=== PATIENT | female | born 1995 | race American Indian/Alaskan Native ===

== ENCOUNTER 2016-06-11 21:29 | Inpatient (IN) | payer BC, MEDICAID ==
[2016-06-11] MEDS ORDERED: LACTATED RINGERS 1,000 ML IV SCH (22:00)
[2016-06-11] MEDS ORDERED: ZOFRAN IV ONE (22:30)
[2016-06-11] MEDS ORDERED: POLYCILLIN/NS 2 GM/100 ML 2 GM/100 ML BAG IV ONE (23:59)
[2016-06-11] MEDS ORDERED: STADOL IV PRN (23:59)
[2016-06-12] MEDS ORDERED: SUBLIMAZE IV PRN (00:28)
[2016-06-12] MEDS ORDERED: BRETHINE SUB-Q PRN (00:28)
[2016-06-12] MEDS ORDERED: MINERAL OIL PO PRN (00:28)
[2016-06-12] MEDS ORDERED: NARCAN 0.4 MG/1 ML IV PRN ×2 (00:28→18:44)
[2016-06-12] MEDS ORDERED: ZOFRAN IV PRN (00:28)
[2016-06-12] MEDS ORDERED: BRETHINE IVP PRN (00:28)
[2016-06-12] MEDS ORDERED: ePHEDrine SULFATE IV PRN ×2 (00:28→04:06)
--- NOTE | 2016-06-12 00:35 | History and Physical Report ---
History of Present Illness Date of examination: 06/12/16 Date of admission: 06/12/16 00:18 Chief complaint: Labor History of present illness: Pt is a 20yo BF EDC 06/12/16; EGA 40 0/7 weeks presents to L&D complaining of RUC's q 3-5 mins. She received care at [facility] [place] since 16 weeks, and course has been unremarkable except anemia. records are available and GBS is Positive. Past History Past Medical History: no pertinent history Past Surgical History: no surgical history Family/Genetic History: cancer Social history: no significant social history, single - Obstetrical History Expected Date of Delivery: 06/12/16 Actual Gestation: 40 Week(s) 0 Day(s) : 1 Medications and Allergies Allergies Allergy/AdvReac Type Severity Reaction Status Date / Time No Known Allergies Allergy Verified 06/11/16 21:58 Home Medications Medication Instructions Recorded Confirmed Last Taken Type Pnv with Ca,No.72/Iron/FA [Pnv 1 tab PO DAILY 06/11/16 06/11/16 1 Day Ago History Plus Multivit Tab] Terconazole [Terconazole] 20 cream VG DAILY 06/11/16 06/11/16 1 Day Ago History 1 appl Active Meds: Active Medications Butorphanol Tartrate (Stadol) 2 mg IV Q2H PRN PRN Reason: Labor Pain Lactated Ringer's (Lactated Ringers) 1,000 mls @ 125 mls/hr IV DIRECT HUONG Last Admin: 06/11/16 22:12 Dose: 125 mls/hr Ampicillin Sodium (Polycillin/Ns 2 Gm/100 Ml) 2 gm in 100 mls @ 100 mls/hr IV ONCE ONE PRN Reason: Protocol Stop: 06/12/16 00:58 Ampicillin Sodium (Polycillin/Ns 1 Gm/50 Ml) 1 gm in 50 mls @ 100 mls/hr IV Q4H HUONG PRN Reason: Protocol Review of Systems All systems: negative - Vital Signs Vital signs: Vital Signs Temp Pulse Resp BP Pulse Ox 97.9 F 104 H 20 137/51 96 06/11/16 21:46 06/11/16 21:46 06/11/16 21:46 06/11/16 21:46 06/11/16 21:46 Temp Pulse Resp BP Pulse Ox 97.9 F 80 20 131/58 95 06/11/16 21:46 06/11/16 23:41 06/11/16 21:46 06/11/16 22:41 06/11/16 23:41 - Physical Exam Breasts: Positive: deferred Cardiovascular: Regular rate Lungs: Positive: Clear to auscultation Abdomen: Positive: normal appearance Genitourinary (Female): Positive: normal external genitalia Vagina: Positive: normal moisture Uterus: Positive: enlarged Extremities: Positive: normal - Obstetrical FHR: category 2 Uterine Contraction Monitor Mode: External Cervical Dilatation: 3 Cervical Effacement Percentage: 80 station: -2 Uterine Contraction Pattern: Irregular Uterine Contraction Intensity: Mild Results Result Diagrams: 06/11/16 22:10 All other labs normal. Ultrasound: report reviewed ([facility] 11/28) Assessment and Plan - Patient Problems (1) Active labor at term Onset Date: 06/12/16 Current Visit: Yes Status: Acute Plan to address problem: A: IUP @ 40 0/7 weeks in early labor Cat 2 Tracing - improved +GBS P: Admit to L&D for expectant vaginal delivery IV Ampicillin Pitocin augmentation of labor
[2016-06-12] MEDS: LACTATED RINGERS 1,000 ML IV SCH ×2 (00:53→15:40)
[2016-06-12] MEDS ORDERED: PITOCin/NS 20 UNIT/1000ML DRIP 20,000 MILLIUNITS/1,000 ML BAG IV SCH ×2 (01:00→19:00)
[2016-06-12] MEDS ORDERED: PITOCin/NS 30 UNIT/500ML 30,000 MILLIUNITS/500 ML BAG IV SCH (01:00)
[2016-06-12 02:57] LABS: Hematocrit 36.7 % (30.3-42.9); Hemoglobin 12.1 gm/dl (10.1-14.3); Mean Corpuscular HGB Conc 33 % (30-34); Mean Corpuscular Hemoglobin 31 pg (28-32); Mean Corpuscular Volume 94 fl (79-97); Platelet Count 248 K/mm3 (140-440); Red Blood Count 3.92 M/mm3 (3.65-5.03); Red Cell Distribution Width 14.1 % (13.2-15.2); White Blood Count 6.8 K/mm3 (4.5-11.0)
--- NOTE | 2016-06-12 04:06 | Anesthesia Consultation ---
Anesthesia Consult and Med Hx Date of service: 06/12/16 - Airway Anesthetic Teeth Evaluation: Good ROM Head & Neck: Adequate Mental/Hyoid Distance: Adequate Intubation Access Assessment: Probably Good - Pre-Operative Health Status ASA Pre-Surgery Classification: ASA2, Emergency Proposed Anesthetic Plan: Epidural, Spinal - Pulmonary Hx Asthma: No Hx Pneumonia: No - Cardiovascular System Hx Hypertension: No - Central Nervous System Hx Seizures: No Hx Psychiatric Problems: No - Endocrine Hx Renal Disease: No Hx End Stage Renal Disease: No Hx Hypothyroidism: No Hx Hyperthyroidism: No - Hematic Hx Anemia: No Hx Sickle Cell Disease: No - Other Systems Hx Alcohol Use: No
[2016-06-12] MEDS: POLYCILLIN/NS 1 GM/50 ML 1 GM/50 ML BAG IV SCH ×3 (04:39→16:33)
[2016-06-12] MEDS: fentaNYL-BUPIV 2 MCG/ML-0.125% 200 MCG/100 ML BAG EPIDURAL SCH ×2 (04:40→12:11)
[2016-06-12] MEDS: PITOCin/NS 30 UNIT/500ML 30,000 MILLIUNITS/500 ML BAG IV SCH ×6 (05:03→11:38)
--- NOTE | 2016-06-12 07:13 | Progress Note ---
Subjective - Subjective Date of service: 06/12/16 Objective - Vital Signs Vital Signs: Vital Signs - 12hr 06/11/16 06/11/16 06/11/16 21:46 21:51 21:52 Temperature 97.9 F Pulse Rate 89 96 H 80 Pulse Rate [ 104 H From Monitor] Respiratory 20 Rate Blood Pressure Blood Pressure 137/51 [Left Arm] O2 Sat by Pulse 99 98 99 Oximetry 06/11/16 06/11/16 06/11/16 21:54 21:55 21:57 Temperature Pulse Rate 133 H 141 H 123 H Pulse Rate [ From Monitor] Respiratory Rate Blood Pressure Blood Pressure [Left Arm] O2 Sat by Pulse 91 97 96 Oximetry 06/11/16 06/11/16 06/11/16 21:59 22:02 22:07 Temperature Pulse Rate 113 H 93 H 89 Pulse Rate [ From Monitor] Respiratory Rate Blood Pressure 137/51 Blood Pressure [Left Arm] O2 Sat by Pulse 95 98 Oximetry 06/11/16 06/11/16 06/11/16 22:09 22:10 22:11 Temperature Pulse Rate 91 H 100 H 98 H Pulse Rate [ From Monitor] Respiratory Rate Blood Pressure 130/78 Blood Pressure [Left Arm] O2 Sat by Pulse 92 93 94 Oximetry 06/11/16 06/11/16 06/11/16 22:14 22:15 22:17 Temperature Pulse Rate 74 84 90 Pulse Rate [ From Monitor] Respiratory Rate Blood Pressure Blood Pressure [Left Arm] O2 Sat by Pulse 93 92 93 Oximetry 06/11/16 06/11/16 06/11/16 22:20 22:21 22:23 Temperature Pulse Rate 83 80 100 H Pulse Rate [ From Monitor] Respiratory Rate Blood Pressure Blood Pressure [Left Arm] O2 Sat by Pulse 93 93 92 Oximetry 06/11/16 06/11/16 06/11/16 22:28 22:29 22:32 Temperature Pulse Rate 91 H 125 H 121 H Pulse Rate [ From Monitor] Respiratory Rate Blood Pressure Blood Pressure [Left Arm] O2 Sat by Pulse 98 92 97 Oximetry 06/11/16 06/11/16 06/11/16 22:37 22:40 22:41 Temperature Pulse Rate 91 H 87 91 H Pulse Rate [ From Monitor] Respiratory Rate Blood Pressure 131/58 Blood Pressure [Left Arm] O2 Sat by Pulse 99 93 96 Oximetry 06/11/16 06/11/1606/11/17 22:46 22:48 22:54 Temperature Pulse Rate 87 88 92 H Pulse Rate [ From Monitor] Respiratory Rate Blood Pressure Blood Pressure [Left Arm] O2 Sat by Pulse 97 93 99 Oximetry 06/11/16 06/11/16 06/11/16 22:59 23:00 23:01 Temperature Pulse Rate 92 H 83 107 H Pulse Rate [ From Monitor] Respiratory Rate Blood Pressure Blood Pressure [Left Arm] O2 Sat by Pulse 98 93 94 Oximetry 06/11/16 06/11/16 06/11/16 23:02 23:05 23:11 Temperature Pulse Rate 100 H 91 H 80 Pulse Rate [ From Monitor] Respiratory Rate Blood Pressure Blood Pressure [Left Arm] O2 Sat by Pulse 93 93 95 Oximetry 06/11/16 06/11/16 06/11/16 23:13 23:14 23:17 Temperature Pulse Rate 91 H 78 93 H Pulse Rate [ From Monitor] Respiratory Rate Blood Pressure Blood Pressure [Left Arm] O2 Sat by Pulse 90 92 98 Oximetry 06/11/16 06/11/16 06/11/16 23:18 23:19 23:20 Temperature Pulse Rate 97 H 75 69 Pulse Rate [ From Monitor] Respiratory Rate Blood Pressure Blood Pressure [Left Arm] O2 Sat by Pulse 97 88 93 Oximetry 06/11/16 06/11/16 06/11/16 23:21 23:24 23:29 Temperature Pulse Rate 71 97 H 85 Pulse Rate [ From Monitor] Respiratory Rate Blood Pressure Blood Pressure [Left Arm] O2 Sat by Pulse 93 97 93 Oximetry 06/11/16 06/11/16 06/11/16 23:30 23:31 23:36 Temperature Pulse Rate 67 72 89 Pulse Rate [ From Monitor] Respiratory Rate Blood Pressure Blood Pressure [Left Arm] O2 Sat by Pulse 92 89 97 Oximetry 06/11/16 06/11/16 06/11/16 23:37 23:40 23:41 Temperature Pulse Rate 90 100 H 80 Pulse Rate [ From Monitor] Respiratory Rate Blood Pressure Blood Pressure [Left Arm] O2 Sat by Pulse 93 98 95 Oximetry 06/12/16 06/12/16 06/12/16 00:34 00:38 00:39 Temperature Pulse Rate 86 85 79 Pulse Rate [ From Monitor] Respiratory Rate Blood Pressure 130/63 Blood Pressure [Left Arm] O2 Sat by Pulse 96 94 97 Oximetry 06/12/16 06/12/16 06/12/16 00:44 00:49 00:52 Temperature Pulse Rate 87 84 74 Pulse Rate [ From Monitor] Respiratory Rate Blood Pressure Blood Pressure [Left Arm] O2 Sat by Pulse 98 97 93 Oximetry 06/12/16 06/12/16 06/12/16 00:54 00:59 01:04 Temperature Pulse Rate 72 88 85 Pulse Rate [ From Monitor] Respiratory Rate Blood Pressure Blood Pressure [Left Arm] O2 Sat by Pulse 96 94 96 Oximetry 06/12/16 06/12/16 06/12/16 01:07 01:08 01:09 Temperature Pulse Rate 82 88 Pulse Rate [ From Monitor] Respiratory 18 Rate Blood Pressure Blood Pressure [Left Arm] O2 Sat by Pulse 89 96 Oximetry 06/12/16 06/12/16 06/12/16 01:14 01:16 01:19 Temperature Pulse Rate 76 77 76 Pulse Rate [ From Monitor] Respiratory Rate Blood Pressure Blood Pressure [Left Arm] O2 Sat by Pulse 92 93 92 Oximetry 06/12/16 06/12/16 06/12/16 01:21 01:24 01:29 Temperature Pulse Rate 75 74 74 Pulse Rate [ From Monitor] Respiratory Rate Blood Pressure Blood Pressure [Left Arm] O2 Sat by Pulse 94 94 94 Oximetry 06/12/16 06/12/16 06/12/16 01:34 01:35 01:39 Temperature Pulse Rate 97 H 72 98 H Pulse Rate [ From Monitor] Respiratory Rate Blood Pressure Blood Pressure [Left Arm] O2 Sat by Pulse 96 94 92 Oximetry 06/12/16 06/12/16 06/12/16 01:44 01:47 01:49 Temperature Pulse Rate 79 73 73 Pulse Rate [ From Monitor] Respiratory Rate Blood Pressure Blood Pressure [Left Arm] O2 Sat by Pulse 93 94 93 Oximetry 06/12/16 06/12/16 06/12/16 01:52 01:54 01:58 Temperature Pulse Rate 75 73 80 Pulse Rate [ From Monitor] Respiratory Rate Blood Pressure Blood Pressure [Left Arm] O2 Sat by Pulse 93 94 94 Oximetry 06/12/16 06/12/16 06/12/16 01:59 02:03 02:04 Temperature Pulse Rate 73 78 71 Pulse Rate [ From Monitor] Respiratory Rate Blood Pressure Blood Pressure [Left Arm] O2 Sat by Pulse 94 93 94 Oximetry 06/12/16 06/12/16 06/12/16 02:09 02:10 02:14 Temperature Pulse Rate 93 H 79 102 H Pulse Rate [ From Monitor] Respiratory Rate Blood Pressure Blood Pressure [Left Arm] O2 Sat by Pulse 97 92 95 Oximetry 06/12/16 06/12/16 06/12/16 02:16 02:19 02:22 Temperature Pulse Rate 78 107 H 78 Pulse Rate [ From Monitor] Respiratory Rate Blood Pressure Blood Pressure [Left Arm] O2 Sat by Pulse 93 93 94 Oximetry 06/12/16 06/12/16 06/12/16 02:24 02:29 02:30 Temperature 98.3 F Pulse Rate 103 H 96 H Pulse Rate [ From Monitor] Respiratory 20 Rate Blood Pressure Blood Pressure [Left Arm] O2 Sat by Pulse 97 95 Oximetry 06/12/16 06/12/16 06/12/16 02:32 02:34 02:38 Temperature Pulse Rate 104 H 86 89 Pulse Rate [ From Monitor] Respiratory Rate Blood Pressure Blood Pressure [Left Arm] O2 Sat by Pulse 89 96 94 Oximetry 06/12/16 06/12/16 06/12/16 02:39 02:44 02:45 Temperature Pulse Rate 91 H 69 82 Pulse Rate [ From Monitor] Respiratory Rate Blood Pressure Blood Pressure [Left Arm] O2 Sat by Pulse 96 96 93 Oximetry 06/12/16 06/12/16 06/12/16 02:49 02:54 02:59 Temperature Pulse Rate 69 76 82 Pulse Rate [ From Monitor] Respiratory Rate Blood Pressure Blood Pressure [Left Arm] O2 Sat by Pulse 94 89 93 Oximetry 06/12/16 06/12/16 06/12/16 03:04 03:05 03:09 Temperature Pulse Rate 67 73 71 Pulse Rate [ From Monitor] Respiratory Rate Blood Pressure Blood Pressure [Left Arm] O2 Sat by Pulse 94 94 94 Oximetry 06/12/16 06/12/16 06/12/16 03:10 03:14 03:15 Temperature Pulse Rate 77 81 92 H Pulse Rate [ From Monitor] Respiratory Rate Blood Pressure Blood Pressure [Left Arm] O2 Sat by Pulse 94 96 94 Oximetry 06/12/16 06/12/16 06/12/16 03:19 03:21 03:24 Temperature Pulse Rate 96 H 68 99 H Pulse Rate [ From Monitor] Respiratory Rate Blood Pressure Blood Pressure [Left Arm] O2 Sat by Pulse 97 94 96 Oximetry 06/12/16 06/12/16 06/12/16 03:27 03:29 03:32 Temperature Pulse Rate 71 67 86 Pulse Rate [ From Monitor] Respiratory Rate Blood Pressure Blood Pressure [Left Arm] O2 Sat by Pulse 94 94 94 Oximetry 06/12/16 06/12/16 06/12/16 03:34 03:37 03:39 Temperature Pulse Rate 91 H 92 H 96 H Pulse Rate [ From Monitor] Respiratory Rate Blood Pressure Blood Pressure [Left Arm] O2 Sat by Pulse 97 93 94 Oximetry 06/12/16 06/12/16 06/12/16 03:44 03:46 03:48 Temperature Pulse Rate 105 H 96 H 89 Pulse Rate [ From Monitor] Respiratory Rate Blood Pressure 128/65 125/63 131/60 Blood Pressure [Left Arm] O2 Sat by Pulse 93 Oximetry 06/12/16 06/12/16 06/12/16 03:49 03:50 03:52 Temperature Pulse Rate 99 H 91 H 95 H Pulse Rate [ From Monitor] Respiratory Rate Blood Pressure 134/64 129/60 Blood Pressure [Left Arm] O2 Sat by Pulse 98 94 Oximetry 06/12/16 06/12/16 06/12/16 03:54 03:56 03:58 Temperature Pulse Rate 78 85 83 Pulse Rate [ From Monitor] Respiratory Rate Blood Pressure 127/57 122/58 119/56 Blood Pressure [Left Arm] O2 Sat by Pulse 96 Oximetry 06/12/16 06/12/16 06/12/16 03:59 04:01 04:02 Temperature Pulse Rate 84 80 68 Pulse Rate [ From Monitor] Respiratory Rate Blood Pressure 136/69 133/62 Blood Pressure [Left Arm] O2 Sat by Pulse 98 Oximetry 06/12/16 06/12/16 06/12/16 04:04 04:06 04:08 Temperature Pulse Rate 70 72 74 Pulse Rate [ From Monitor] Respiratory Rate Blood Pressure 131/63 128/56 130/59 Blood Pressure [Left Arm] O2 Sat by Pulse 96 Oximetry 06/12/16 06/12/16 06/12/16 04:09 04:10 04:12 Temperature Pulse Rate 71 60 72 Pulse Rate [ From Monitor] Respiratory Rate Blood Pressure 124/60 132/63 Blood Pressure [Left Arm] O2 Sat by Pulse 94 Oximetry 06/12/16 06/12/16 06/12/16 04:14 04:16 04:18 Temperature Pulse Rate 65 67 62 Pulse Rate [ From Monitor] Respiratory Rate Blood Pressure 122/70 122/58 125/60 Blood Pressure [Left Arm] O2 Sat by Pulse 94 Oximetry 06/12/16 06/12/16 06/12/16 04:19 04:20 04:22 Temperature Pulse Rate 63 68 67 Pulse Rate [ From Monitor] Respiratory Rate Blood Pressure 118/59 134/59 Blood Pressure [Left Arm] O2 Sat by Pulse 97 Oximetry 06/12/16 06/12/16 06/12/16 04:24 04:26 04:28 Temperature Pulse Rate 70 71 62 Pulse Rate [ From Monitor] Respiratory Rate Blood Pressure 129/60 132/60 135/61 Blood Pressure [Left Arm] O2 Sat by Pulse 96 Oximetry 06/12/16 06/12/16 06/12/16 04:29 04:30 04:32 Temperature Pulse Rate 67 68 65 Pulse Rate [ From Monitor] Respiratory Rate Blood Pressure 137/60 137/61 Blood Pressure [Left Arm] O2 Sat by Pulse 97 Oximetry 06/12/16 06/12/16 06/12/16 04:34 04:35 04:36 Temperature 96.1 F L Pulse Rate 67 66 72 Pulse Rate [ From Monitor] Respiratory 18 Rate Blood Pressure 138/61 126/60 Blood Pressure [Left Arm] O2 Sat by Pulse 95 94 Oximetry 06/12/16 06/12/16 06/12/16 04:38 04:39 04:40 Temperature Pulse Rate 72 69 66 Pulse Rate [ From Monitor] Respiratory Rate Blood Pressure 134/60 138/64 Blood Pressure [Left Arm] O2 Sat by Pulse 96 Oximetry 06/12/16 06/12/16 06/12/16 04:42 04:44 04:46 Temperature Pulse Rate 68 68 70 Pulse Rate [ From Monitor] Respiratory Rate Blood Pressure 136/63 137/65 141/67 Blood Pressure [Left Arm] O2 Sat by Pulse 97 Oximetry 06/12/16 06/12/16 06/12/16 04:48 04:49 04:50 Temperature Pulse Rate 69 67 77 Pulse Rate [ From Monitor] Respiratory Rate Blood Pressure 134/62 131/60 Blood Pressure [Left Arm] O2 Sat by Pulse 98 Oximetry 06/12/16 06/12/16 06/12/16 04:52 04:54 04:56 Temperature Pulse Rate 69 71 74 Pulse Rate [ From Monitor] Respiratory Rate Blood Pressure 136/63 135/61 137/63 Blood Pressure [Left Arm] O2 Sat by Pulse 96 Oximetry 06/12/16 06/12/16 06/12/16 04:58 04:59 05:00 Temperature Pulse Rate 71 72 78 Pulse Rate [ From Monitor] Respiratory Rate Blood Pressure 137/62 134/62 Blood Pressure [Left Arm] O2 Sat by Pulse 97 Oximetry 06/12/16 06/12/16 06/12/16 05:02 05:04 05:06 Temperature Pulse Rate 69 70 71 Pulse Rate [ From Monitor] Respiratory Rate Blood Pressure 142/64 137/62 144/66 Blood Pressure [Left Arm] O2 Sat by Pulse 97 Oximetry 06/12/16 06/12/16 06/12/16 05:08 05:09 05:10 Temperature Pulse Rate 74 71 80 Pulse Rate [ From Monitor] Respiratory Rate Blood Pressure 139/63 139/62 Blood Pressure [Left Arm] O2 Sat by Pulse 97 Oximetry 06/12/16 06/12/16 06/12/16 05:12 05:14 05:16 Temperature Pulse Rate 71 78 70 Pulse Rate [ From Monitor] Respiratory Rate Blood Pressure 135/61 135/61 141/65 Blood Pressure [Left Arm] O2 Sat by Pulse 98 Oximetry 06/12/16 06/12/16 06/12/16 05:18 05:19 05:20 Temperature Pulse Rate 70 80 71 Pulse Rate [ From Monitor] Respiratory Rate Blood Pressure 140/63 143/64 Blood Pressure [Left Arm] O2 Sat by Pulse 99 Oximetry 06/12/16 06/12/16 06/12/16 05:22 05:24 05:25 Temperature Pulse Rate 76 78 71 Pulse Rate [ From Monitor] Respiratory Rate Blood Pressure 129/59 140/63 Blood Pressure [Left Arm] O2 Sat by Pulse 96 Oximetry 06/12/16 06/12/16 06/12/16 05:26 05:28 05:29 Temperature Pulse Rate 75 73 75 Pulse Rate [ From Monitor] Respiratory Rate Blood Pressure 132/60 131/60 Blood Pressure [Left Arm] O2 Sat by Pulse 95 Oximetry 06/12/16 06/12/16 06/12/16 05:31 05:32 05:34 Temperature Pulse Rate 67 67 78 Pulse Rate [ From Monitor] Respiratory Rate Blood Pressure 134/63 135/63 133/62 Blood Pressure [Left Arm] O2 Sat by Pulse 96 Oximetry 06/12/16 06/12/16 06/12/16 05:36 05:38 05:39 Temperature Pulse Rate 81 66 68 Pulse Rate [ From Monitor] Respiratory Rate Blood Pressure 141/67 144/66 Blood Pressure [Left Arm] O2 Sat by Pulse 96 Oximetry 06/12/16 06/12/16 06/12/16 05:40 05:42 05:44 Temperature Pulse Rate 64 71 64 Pulse Rate [ From Monitor] Respiratory Rate Blood Pressure 145/65 142/64 144/67 Blood Pressure [Left Arm] O2 Sat by Pulse 97 Oximetry 06/12/16 06/12/16 06/12/16 05:46 05:49 05:50 Temperature Pulse Rate 63 66 66 Pulse Rate [ From Monitor] Respiratory Rate Blood Pressure 140/59 143/84 142/65 Blood Pressure [Left Arm] O2 Sat by Pulse 100 Oximetry 06/12/16 06/12/16 06/12/16 05:52 05:54 05:56 Temperature Pulse Rate 75 75 71 Pulse Rate [ From Monitor] Respiratory Rate Blood Pressure 142/65 160/72 141/65 Blood Pressure [Left Arm] O2 Sat by Pulse 96 Oximetry 06/12/16 06/12/16 06/12/16 05:58 05:59 06:01 Temperature Pulse Rate 74 84 76 Pulse Rate [ From Monitor] Respiratory Rate Blood Pressure 141/63 137/81 Blood Pressure [Left Arm] O2 Sat by Pulse 94 Oximetry 06/12/16 06/12/16 06/12/16 06:04 06:09 06:10 Temperature Pulse Rate 86 94 H 72 Pulse Rate [ From Monitor] Respiratory Rate Blood Pressure 136/77 148/65 146/65 Blood Pressure [Left Arm] O2 Sat by Pulse 97 97 Oximetry 06/12/16 06/12/16 06/12/16 06:12 06:13 06:14 Temperature Pulse Rate 67 84 72 Pulse Rate [ From Monitor] Respiratory Rate Blood Pressure 140/63 Blood Pressure [Left Arm] O2 Sat by Pulse 93 94 Oximetry 06/12/16 06/12/16 06/12/16 06:15 06:19 06:24 Temperature Pulse Rate 69 79 68 Pulse Rate [ From Monitor] Respiratory Rate Blood Pressure 150/66 Blood Pressure [Left Arm] O2 Sat by Pulse 95 98 Oximetry 06/12/16 06/12/16 06/12/16 06:29 06:30 06:32 Temperature 97 F L Pulse Rate 60 64 Pulse Rate [ From Monitor] Respiratory 20 Rate Blood Pressure 157/71 Blood Pressure [Left Arm] O2 Sat by Pulse 96 Oximetry 06/12/16 06/12/16 06/12/16 06:34 06:38 06:39 Temperature Pulse Rate 74 69 77 Pulse Rate [ From Monitor] Respiratory Rate Blood Pressure Blood Pressure [Left Arm] O2 Sat by Pulse 97 94 98 Oximetry 06/12/16 06/12/16 06/12/16 06:44 06:46 06:47 Temperature Pulse Rate 79 64 69 Pulse Rate [ From Monitor] Respiratory Rate Blood Pressure 140/63 Blood Pressure [Left Arm] O2 Sat by Pulse 97 92 Oximetry 06/12/16 06/12/16 06/12/16 06:49 06:52 06:54 Temperature Pulse Rate 62 75 64 Pulse Rate [ From Monitor] Respiratory Rate Blood Pressure Blood Pressure [Left Arm] O2 Sat by Pulse 96 94 97 Oximetry 06/12/16 06/12/16 06/12/16 06:59 07:01 07:04 Temperature Pulse Rate 59 L 65 64 Pulse Rate [ From Monitor] Respiratory Rate Blood Pressure 141/65 Blood Pressure [Left Arm] O2 Sat by Pulse 96 95 Oximetry 06/12/16 07:09 Temperature Pulse Rate 68 Pulse Rate [ From Monitor] Respiratory Rate Blood Pressure Blood Pressure [Left Arm] O2 Sat by Pulse 97 Oximetry - Exam FHR: category 1 - Labs Labs: Laboratory Results - last 24 hr 06/11/16 06/11/16 22:10 22:10 WBC 6.8 RBC 3.92 Hgb 12.1 Hct 36.7 MCV 94 MCH 31 MCHC 33 RDW 14.1 Plt Count 248 Blood Type O POSITIVE Antibody Screen Negative
[2016-06-12] MEDS ORDERED: XYLOCAINE MPF 2% ONE ×6 (07:31→18:21)
--- NOTE | 2016-06-12 07:57 | Ultrasound Report ---
OB LIMITED Technique: Transabdominal ultrasound with Doppler interrogation. Gestation: Single Position: Cephalic Amniotic Fluid: Normal ANNEL = 9.5 cm Placenta: Fundal Placental Grade: 3 Heart Rate: 137 BPM
--- NOTE | 2016-06-12 07:57 | Ultrasound Report ---
BIOPHYSICAL PROFILE: History: well-being. Technique: Transabdominal ultrasound with Doppler interrogation. 2 - breathing movements 2 - movements 2 - posture and tone 2 - Qualitative amniotic fluid volume 8 - TOTAL SCORE OF POSSIBLE 8 Heart Rate (bpm) 137
--- NOTE | 2016-06-12 09:29 | Progress Note ---
Assessment and Plan A: IUP 40 weeks in active labor resting well with epidural anesthesia category 1 heart tracing GBS positive P: Routine care, turning q 1 hr Continuous monitoring AROM @0915 moderate amount of clear fluid GBS prophylaxis Subjective - Subjective Date of service: 06/12/16 Principal diagnosis: IUP 40 weeks, active labor Objective - Vital Signs Vital Signs: Vital Signs - 12hr 06/11/16 06/11/16 06/11/16 21:46 21:51 21:52 Temperature 97.9 F Pulse Rate 89 96 H 80 Pulse Rate [ 104 H From Monitor] Respiratory 20 Rate Blood Pressure Blood Pressure 137/51 [Left Arm] O2 Sat by Pulse 99 98 99 Oximetry 06/11/16 06/11/16 06/11/16 21:54 21:55 21:57 Temperature Pulse Rate 133 H 141 H 123 H Pulse Rate [ From Monitor] Respiratory Rate Blood Pressure Blood Pressure [Left Arm] O2 Sat by Pulse 91 97 96 Oximetry 06/11/16 06/11/16 06/11/16 21:59 22:02 22:07 Temperature Pulse Rate 113 H 93 H 89 Pulse Rate [ From Monitor] Respiratory Rate Blood Pressure 137/51 Blood Pressure [Left Arm] O2 Sat by Pulse 95 98 Oximetry 06/11/16 06/11/16 06/11/16 22:09 22:10 22:11 Temperature Pulse Rate 91 H 100 H 98 H Pulse Rate [ From Monitor] Respiratory Rate Blood Pressure 130/78 Blood Pressure [Left Arm] O2 Sat by Pulse 92 93 94 Oximetry 06/11/16 06/11/16 06/11/16 22:14 22:15 22:17 Temperature Pulse Rate 74 84 90 Pulse Rate [ From Monitor] Respiratory Rate Blood Pressure Blood Pressure [Left Arm] O2 Sat by Pulse 93 92 93 Oximetry 06/11/16 06/11/16 06/11/16 22:20 22:21 22:23 Temperature Pulse Rate 83 80 100 H Pulse Rate [ From Monitor] Respiratory Rate Blood Pressure Blood Pressure [Left Arm] O2 Sat by Pulse 93 93 92 Oximetry 06/11/16 06/11/16 06/11/16 22:28 22:29 22:32 Temperature Pulse Rate 91 H 125 H 121 H Pulse Rate [ From Monitor] Respiratory Rate Blood Pressure Blood Pressure [Left Arm] O2 Sat by Pulse 98 92 97 Oximetry 06/11/16 06/11/16 06/11/16 22:37 22:40 22:41 Temperature Pulse Rate 91 H 87 91 H Pulse Rate [ From Monitor] Respiratory Rate Blood Pressure 131/58 Blood Pressure [Left Arm] O2 Sat by Pulse 99 93 96 Oximetry 06/11/16 06/11/16 06/11/16 22:46 22:48 22:54 Temperature Pulse Rate 87 88 92 H Pulse Rate [ From Monitor] Respiratory Rate Blood Pressure Blood Pressure [Left Arm] O2 Sat by Pulse 97 93 99 Oximetry 06/11/16 06/11/16 06/11/16 22:59 23:00 23:01 Temperature Pulse Rate 92 H 83 107 H Pulse Rate [ From Monitor] Respiratory Rate Blood Pressure Blood Pressure [Left Arm] O2 Sat by Pulse 98 93 94 Oximetry 06/11/16 06/11/16 06/11/16 23:02 23:05 23:11 Temperature Pulse Rate 100 H 91 H 80 Pulse Rate [ From Monitor] Respiratory Rate Blood Pressure Blood Pressure [Left Arm] O2 Sat by Pulse 93 93 95 Oximetry 06/11/16 06/11/16 06/11/16 23:13 23:14 23:17 Temperature Pulse Rate 91 H 78 93 H Pulse Rate [ From Monitor] Respiratory Rate Blood Pressure Blood Pressure [Left Arm] O2 Sat by Pulse 90 92 98 Oximetry 06/11/16 06/11/16 06/11/16 23:18 23:19 23:20 Temperature Pulse Rate 97 H 75 69 Pulse Rate [ From Monitor] Respiratory Rate Blood Pressure Blood Pressure [Left Arm] O2 Sat by Pulse 97 88 93 Oximetry 06/11/16 06/11/16 06/11/16 23:21 23:24 23:29 Temperature Pulse Rate 71 97 H 85 Pulse Rate [ From Monitor] Respiratory Rate Blood Pressure Blood Pressure [Left Arm] O2 Sat by Pulse 93 97 93 Oximetry 06/11/16 06/11/16 06/11/16 23:30 23:31 23:36 Temperature Pulse Rate 67 72 89 Pulse Rate [ From Monitor] Respiratory Rate Blood Pressure Blood Pressure [Left Arm] O2 Sat by Pulse 92 89 97 Oximetry 06/11/16 06/11/16 06/11/16 23:37 23:40 23:41 Temperature Pulse Rate 90 100 H 80 Pulse Rate [ From Monitor] Respiratory Rate Blood Pressure Blood Pressure [Left Arm] O2 Sat by Pulse 93 98 95 Oximetry 06/12/16 06/12/16 06/12/16 00:34 00:38 00:39 Temperature Pulse Rate 86 85 79 Pulse Rate [ From Monitor] Respiratory Rate Blood Pressure 130/63 Blood Pressure [Left Arm] O2 Sat by Pulse 96 94 97 Oximetry 06/12/16 06/12/16 06/12/16 00:44 00:49 00:52 Temperature Pulse Rate 87 84 74 Pulse Rate [ From Monitor] Respiratory Rate Blood Pressure Blood Pressure [Left Arm] O2 Sat by Pulse 98 97 93 Oximetry 06/12/16 06/12/16 06/12/16 00:54 00:59 01:04 Temperature Pulse Rate 72 88 85 Pulse Rate [ From Monitor] Respiratory Rate Blood Pressure Blood Pressure [Left Arm] O2 Sat by Pulse 96 94 96 Oximetry 06/12/16 06/12/16 06/12/16 01:07 01:08 01:09 Temperature Pulse Rate 82 88 Pulse Rate [ From Monitor] Respiratory 18 Rate Blood Pressure Blood Pressure [Left Arm] O2 Sat by Pulse 89 96 Oximetry 06/12/16 06/12/16 06/12/16 01:14 01:16 01:19 Temperature Pulse Rate 76 77 76 Pulse Rate [ From Monitor] Respiratory Rate Blood Pressure Blood Pressure [Left Arm] O2 Sat by Pulse 92 93 92 Oximetry 06/12/16 06/12/16 06/12/16 01:21 01:24 01:29 Temperature Pulse Rate 75 74 74 Pulse Rate [ From Monitor] Respiratory Rate Blood Pressure Blood Pressure [Left Arm] O2 Sat by Pulse 94 94 94 Oximetry 06/12/16 06/12/16 06/12/16 01:34 01:35 01:39 Temperature Pulse Rate 97 H 72 98 H Pulse Rate [ From Monitor] Respiratory Rate Blood Pressure Blood Pressure [Left Arm] O2 Sat by Pulse 96 94 92 Oximetry 06/12/16 06/12/16 06/12/16 01:44 01:47 01:49 Temperature Pulse Rate 79 73 73 Pulse Rate [ From Monitor] Respiratory Rate Blood Pressure Blood Pressure [Left Arm] O2 Sat by Pulse 93 94 93 Oximetry 06/12/16 06/12/16 06/12/16 01:52 01:54 01:58 Temperature Pulse Rate 75 73 80 Pulse Rate [ From Monitor] Respiratory Rate Blood Pressure Blood Pressure [Left Arm] O2 Sat by Pulse 93 94 94 Oximetry 06/12/16 06/12/16 06/12/16 01:59 02:03 02:04 Temperature Pulse Rate 73 78 71 Pulse Rate [ From Monitor] Respiratory Rate Blood Pressure Blood Pressure [Left Arm] O2 Sat by Pulse 94 93 94 Oximetry 06/12/16 06/12/16 06/12/16 02:09 02:10 02:14 Temperature Pulse Rate 93 H 79 102 H Pulse Rate [ From Monitor] Respiratory Rate Blood Pressure Blood Pressure [Left Arm] O2 Sat by Pulse 97 92 95 Oximetry 06/12/16 06/12/16 06/12/16 02:16 02:19 02:22 Temperature Pulse Rate 78 107 H 78 Pulse Rate [ From Monitor] Respiratory Rate Blood Pressure Blood Pressure [Left Arm] O2 Sat by Pulse 93 93 94 Oximetry 06/12/16 06/12/16 06/12/16 02:24 02:29 02:30 Temperature 98.3 F Pulse Rate 103 H 96 H Pulse Rate [ From Monitor] Respiratory 20 Rate Blood Pressure Blood Pressure [Left Arm] O2 Sat by Pulse 97 95 Oximetry 06/12/16 06/12/16 06/12/16 02:32 02:34 02:38 Temperature Pulse Rate 104 H 86 89 Pulse Rate [ From Monitor] Respiratory Rate Blood Pressure Blood Pressure [Left Arm] O2 Sat by Pulse 89 96 94 Oximetry 06/12/16 06/12/16 06/12/16 02:39 02:44 02:45 Temperature Pulse Rate 91 H 69 82 Pulse Rate [ From Monitor] Respiratory Rate Blood Pressure Blood Pressure [Left Arm] O2 Sat by Pulse 96 96 93 Oximetry 06/12/16 06/12/16 06/12/16 02:49 02:54 02:59 Temperature Pulse Rate 69 76 82 Pulse Rate [ From Monitor] Respiratory Rate Blood Pressure Blood Pressure [Left Arm] O2 Sat by Pulse 94 89 93 Oximetry 06/12/16 06/12/16 06/12/16 03:04 03:05 03:09 Temperature Pulse Rate 67 73 71 Pulse Rate [ From Monitor] Respiratory Rate Blood Pressure Blood Pressure [Left Arm] O2 Sat by Pulse 94 94 94 Oximetry 06/12/16 06/12/16 06/12/16 03:10 03:14 03:15 Temperature Pulse Rate 77 81 92 H Pulse Rate [ From Monitor] Respiratory Rate Blood Pressure Blood Pressure [Left Arm] O2 Sat by Pulse 94 96 94 Oximetry 06/12/16 06/12/16 06/12/16 03:19 03:21 03:24 Temperature Pulse Rate 96 H 68 99 H Pulse Rate [ From Monitor] Respiratory Rate Blood Pressure Blood Pressure [Left Arm] O2 Sat by Pulse 97 94 96 Oximetry 06/12/16 06/12/16 06/12/16 03:27 03:29 03:32 Temperature Pulse Rate 71 67 86 Pulse Rate [ From Monitor] Respiratory Rate Blood Pressure Blood Pressure [Left Arm] O2 Sat by Pulse 94 94 94 Oximetry 06/12/16 06/12/16 06/12/16 03:34 03:37 03:39 Temperature Pulse Rate 91 H 92 H 96 H Pulse Rate [ From Monitor] Respiratory Rate Blood Pressure Blood Pressure [Left Arm] O2 Sat by Pulse 97 93 94 Oximetry 06/12/16 06/12/16 06/12/16 03:44 03:46 03:48 Temperature Pulse Rate 105 H 96 H 89 Pulse Rate [ From Monitor] Respiratory Rate Blood Pressure 128/65 125/63 131/60 Blood Pressure [Left Arm] O2 Sat by Pulse 93 Oximetry 06/12/16 06/12/16 06/12/16 03:49 03:50 03:52 Temperature Pulse Rate 99 H 91 H 95 H Pulse Rate [ From Monitor] Respiratory Rate Blood Pressure 134/64 129/60 Blood Pressure [Left Arm] O2 Sat by Pulse 98 94 Oximetry 06/12/16 06/12/16 06/12/16 03:54 03:56 03:58 Temperature Pulse Rate 78 85 83 Pulse Rate [ From Monitor] Respiratory Rate Blood Pressure 127/57 122/58 119/56 Blood Pressure [Left Arm] O2 Sat by Pulse 96 Oximetry 06/12/16 06/12/16 06/12/16 03:59 04:01 04:02 Temperature Pulse Rate 84 80 68 Pulse Rate [ From Monitor] Respiratory Rate Blood Pressure 136/69 133/62 Blood Pressure [Left Arm] O2 Sat by Pulse 98 Oximetry 06/12/16 06/12/16 06/12/16 04:04 04:06 04:08 Temperature Pulse Rate 70 72 74 Pulse Rate [ From Monitor] Respiratory Rate Blood Pressure 131/63 128/56 130/59 Blood Pressure [Left Arm] O2 Sat by Pulse 96 Oximetry 06/12/16 06/12/16 06/12/16 04:09 04:10 04:12 Temperature Pulse Rate 71 60 72 Pulse Rate [ From Monitor] Respiratory Rate Blood Pressure 124/60 132/63 Blood Pressure [Left Arm] O2 Sat by Pulse 94 Oximetry 06/12/16 06/12/16 06/12/16 04:14 04:16 04:18 Temperature Pulse Rate 65 67 62 Pulse Rate [ From Monitor] Respiratory Rate Blood Pressure 122/70 122/58 125/60 Blood Pressure [Left Arm] O2 Sat by Pulse 94 Oximetry 06/12/16 06/12/16 06/12/16 04:19 04:20 04:22 Temperature Pulse Rate 63 68 67 Pulse Rate [ From Monitor] Respiratory Rate Blood Pressure 118/59 134/59 Blood Pressure [Left Arm] O2 Sat by Pulse 97 Oximetry 06/12/16 06/12/16 06/12/16 04:24 04:26 04:28 Temperature Pulse Rate 70 71 62 Pulse Rate [ From Monitor] Respiratory Rate Blood Pressure 129/60 132/60 135/61 Blood Pressure [Left Arm] O2 Sat by Pulse 96 Oximetry 06/12/16 06/12/16 06/12/16 04:29 04:30 04:32 Temperature Pulse Rate 67 68 65 Pulse Rate [ From Monitor] Respiratory Rate Blood Pressure 137/60 137/61 Blood Pressure [Left Arm] O2 Sat by Pulse 97 Oximetry 06/12/16 06/12/16 06/12/16 04:34 04:35 04:36 Temperature 96.1 F L Pulse Rate 67 66 72 Pulse Rate [ From Monitor] Respiratory 18 Rate Blood Pressure 138/61 126/60 Blood Pressure [Left Arm] O2 Sat by Pulse 95 94 Oximetry 06/12/16 06/12/16 06/12/16 04:38 04:39 04:40 Temperature Pulse Rate 72 69 66 Pulse Rate [ From Monitor] Respiratory Rate Blood Pressure 134/60 138/64 Blood Pressure [Left Arm] O2 Sat by Pulse 96 Oximetry 06/12/16 06/12/16 06/12/16 04:42 04:44 04:46 Temperature Pulse Rate 68 68 70 Pulse Rate [ From Monitor] Respiratory Rate Blood Pressure 136/63 137/65 141/67 Blood Pressure [Left Arm] O2 Sat by Pulse 97 Oximetry 06/12/16 06/12/16 06/12/16 04:48 04:49 04:50 Temperature Pulse Rate 69 67 77 Pulse Rate [ From Monitor] Respiratory Rate Blood Pressure 134/62 131/60 Blood Pressure [Left Arm] O2 Sat by Pulse 98 Oximetry 06/12/16 06/12/16 06/12/16 04:52 04:54 04:56 Temperature Pulse Rate 69 71 74 Pulse Rate [ From Monitor] Respiratory Rate Blood Pressure 136/63 135/61 137/63 Blood Pressure [Left Arm] O2 Sat by Pulse 96 Oximetry 06/12/16 06/12/16 06/12/16 04:58 04:59 05:00 Temperature Pulse Rate 71 72 78 Pulse Rate [ From Monitor] Respiratory Rate Blood Pressure 137/62 134/62 Blood Pressure [Left Arm] O2 Sat by Pulse 97 Oximetry 06/12/16 06/12/16 06/12/16 05:02 05:04 05:06 Temperature Pulse Rate 69 70 71 Pulse Rate [ From Monitor] Respiratory Rate Blood Pressure 142/64 137/62 144/66 Blood Pressure [Left Arm] O2 Sat by Pulse 97 Oximetry 06/12/16 06/12/16 06/12/16 05:08 05:09 05:10 Temperature Pulse Rate 74 71 80 Pulse Rate [ From Monitor] Respiratory Rate Blood Pressure 139/63 139/62 Blood Pressure [Left Arm] O2 Sat by Pulse 97 Oximetry 06/12/16 06/12/16 06/12/16 05:12 05:14 05:16 Temperature Pulse Rate 71 78 70 Pulse Rate [ From Monitor] Respiratory Rate Blood Pressure 135/61 135/61 141/65 Blood Pressure [Left Arm] O2 Sat by Pulse 98 Oximetry 06/12/16 06/12/16 06/12/16 05:18 05:19 05:20 Temperature Pulse Rate 70 80 71 Pulse Rate [ From Monitor] Respiratory Rate Blood Pressure 140/63 143/64 Blood Pressure [Left Arm] O2 Sat by Pulse 99 Oximetry 06/12/16 06/12/16 06/12/16 05:22 05:24 05:25 Temperature Pulse Rate 76 78 71 Pulse Rate [ From Monitor] Respiratory Rate Blood Pressure 129/59 140/63 Blood Pressure [Left Arm] O2 Sat by Pulse 96 Oximetry 06/12/16 06/12/16 06/12/16 05:26 05:28 05:29 Temperature Pulse Rate 75 73 75 Pulse Rate [ From Monitor] Respiratory Rate Blood Pressure 132/60 131/60 Blood Pressure [Left Arm] O2 Sat by Pulse 95 Oximetry 06/12/16 06/12/16 06/12/16 05:31 05:32 05:34 Temperature Pulse Rate 67 67 78 Pulse Rate [ From Monitor] Respiratory Rate Blood Pressure 134/63 135/63 133/62 Blood Pressure [Left Arm] O2 Sat by Pulse 96 Oximetry 06/12/16 06/12/16 06/12/16 05:36 05:38 05:39 Temperature Pulse Rate 81 66 68 Pulse Rate [ From Monitor] Respiratory Rate Blood Pressure 141/67 144/66 Blood Pressure [Left Arm] O2 Sat by Pulse 96 Oximetry 06/12/16 06/12/16 06/12/16 05:40 05:42 05:44 Temperature Pulse Rate 64 71 64 Pulse Rate [ From Monitor] Respiratory Rate Blood Pressure 145/65 142/64 144/67 Blood Pressure [Left Arm] O2 Sat by Pulse 97 Oximetry 06/12/16 06/12/16 06/12/16 05:46 05:49 05:50 Temperature Pulse Rate 63 66 66 Pulse Rate [ From Monitor] Respiratory Rate Blood Pressure 140/59 143/84 142/65 Blood Pressure [Left Arm] O2 Sat by Pulse 100 Oximetry 06/12/16 06/12/16 06/12/16 05:52 05:54 05:56 Temperature Pulse Rate 75 75 71 Pulse Rate [ From Monitor] Respiratory Rate Blood Pressure 142/65 160/72 141/65 Blood Pressure [Left Arm] O2 Sat by Pulse 96 Oximetry 06/12/16 06/12/16 06/12/16 05:58 05:59 06:01 Temperature Pulse Rate 74 84 76 Pulse Rate [ From Monitor] Respiratory Rate Blood Pressure 141/63 137/81 Blood Pressure [Left Arm] O2 Sat by Pulse 94 Oximetry 06/12/16 06/12/16 06/12/16 06:04 06:09 06:10 Temperature Pulse Rate 86 94 H 72 Pulse Rate [ From Monitor] Respiratory Rate Blood Pressure 136/77 148/65 146/65 Blood Pressure [Left Arm] O2 Sat by Pulse 97 97 Oximetry 06/12/16 06/12/16 06/12/16 06:12 06:13 06:14 Temperature Pulse Rate 67 84 72 Pulse Rate [ From Monitor] Respiratory Rate Blood Pressure 140/63 Blood Pressure [Left Arm] O2 Sat by Pulse 93 94 Oximetry 06/12/16 06/12/16 06/12/16 06:15 06:19 06:24 Temperature Pulse Rate 69 79 68 Pulse Rate [ From Monitor] Respiratory Rate Blood Pressure 150/66 Blood Pressure [Left Arm] O2 Sat by Pulse 95 98 Oximetry 06/12/16 06/12/16 06/12/16 06:29 06:30 06:32 Temperature 97 F L Pulse Rate 60 64 Pulse Rate [ From Monitor] Respiratory 20 Rate Blood Pressure 157/71 Blood Pressure [Left Arm] O2 Sat by Pulse 96 Oximetry 06/12/16 06/12/16 06/12/16 06:34 06:38 06:39 Temperature Pulse Rate 74 69 77 Pulse Rate [ From Monitor] Respiratory Rate Blood Pressure Blood Pressure [Left Arm] O2 Sat by Pulse 97 94 98 Oximetry 06/12/16 06/12/16 06/12/16 06:44 06:46 06:47 Temperature Pulse Rate 79 64 69 Pulse Rate [ From Monitor] Respiratory Rate Blood Pressure 140/63 Blood Pressure [Left Arm] O2 Sat by Pulse 97 92 Oximetry 06/12/16 06/12/16 06/12/16 06:49 06:52 06:54 Temperature Pulse Rate 62 75 64 Pulse Rate [ From Monitor] Respiratory Rate Blood Pressure Blood Pressure [Left Arm] O2 Sat by Pulse 96 94 97 Oximetry 06/12/16 06/12/16 06/12/16 06:59 07:01 07:04 Temperature Pulse Rate 59 L 65 64 Pulse Rate [ From Monitor] Respiratory Rate Blood Pressure 141/65 Blood Pressure [Left Arm] O2 Sat by Pulse 96 95 Oximetry 06/12/16 06/12/16 06/12/16 07:09 07:13 07:14 Temperature Pulse Rate 68 72 78 Pulse Rate [ From Monitor] Respiratory Rate Blood Pressure Blood Pressure [Left Arm] O2 Sat by Pulse 97 94 96 Oximetry 06/12/16 06/12/16 06/12/16 07:16 07:19 07:21 Temperature Pulse Rate 64 79 65 Pulse Rate [ From Monitor] Respiratory Rate Blood Pressure 136/63 Blood Pressure [Left Arm] O2 Sat by Pulse 96 94 Oximetry 06/12/16 06/12/16 06/12/16 07:24 07:25 07:26 Temperature 98.2 F Pulse Rate 61 70 Pulse Rate [ 62 From Monitor] Respiratory 16 Rate Blood Pressure 134/63 Blood Pressure 134/63 [Left Arm] O2 Sat by Pulse 94 95 Oximetry 06/12/16 06/12/16 06/12/16 07:29 07:32 07:34 Temperature Pulse Rate 70 71 78 Pulse Rate [ From Monitor] Respiratory Rate Blood Pressure 133/74 Blood Pressure [Left Arm] O2 Sat by Pulse 94 97 Oximetry 06/12/16 06/12/16 06/12/16 07:35 07:39 07:41 Temperature Pulse Rate 76 87 70 Pulse Rate [ From Monitor] Respiratory Rate Blood Pressure Blood Pressure [Left Arm] O2 Sat by Pulse 91 97 93 Oximetry 06/12/16 06/12/16 06/12/16 07:44 07:46 07:48 Temperature Pulse Rate 77 81 69 Pulse Rate [ From Monitor] Respiratory Rate Blood Pressure 127/62 Blood Pressure [Left Arm] O2 Sat by Pulse 93 94 Oximetry 06/12/16 06/12/16 06/12/16 07:49 07:54 07:57 Temperature Pulse Rate 78 104 H 69 Pulse Rate [ From Monitor] Respiratory Rate Blood Pressure Blood Pressure [Left Arm] O2 Sat by Pulse 95 97 83 L Oximetry 06/12/16 06/12/16 06/12/16 07:59 08:01 08:18 Temperature Pulse Rate 74 85 74 Pulse Rate [ From Monitor] Respiratory Rate Blood Pressure 126/71 127/60 Blood Pressure [Left Arm] O2 Sat by Pulse 97 Oximetry 06/12/16 06/12/16 06/12/16 08:31 08:36 08:41 Temperature Pulse Rate 72 92 H 72 Pulse Rate [ From Monitor] Respiratory Rate Blood Pressure 130/62 Blood Pressure [Left Arm] O2 Sat by Pulse 96 97 98 Oximetry 06/12/16 06/12/16 06/12/16 08:46 08:51 08:56 Temperature Pulse Rate 84 71 73 Pulse Rate [ From Monitor] Respiratory Rate Blood Pressure 127/70 Blood Pressure [Left Arm] O2 Sat by Pulse 98 98 97 Oximetry 06/12/16 06/12/16 06/12/16 09:01 09:06 09:11 Temperature Pulse Rate 65 76 86 Pulse Rate [ From Monitor] Respiratory Rate Blood Pressure 109/57 Blood Pressure [Left Arm] O2 Sat by Pulse 97 97 98 Oximetry 06/12/16 09:16 Temperature Pulse Rate 77 Pulse Rate [ From Monitor] Respiratory Rate Blood Pressure 134/68 Blood Pressure [Left Arm] O2 Sat by Pulse Oximetry - Exam Cardiovascular: Regular rate Lungs: Normal air movement Uterus: Present: normal FHR: category 1 Uterine Contraction Monitor Mode: External Cervical Dilatation: 6 (AROM 0915, moderate amout of clear cluid) Cervical Effacement Percentage: 80 station: -1 Uterine Contraction Frequency (min): q2-3 minutes Uterine Contraction Pattern: Regular Uterine Tone Measurement Phase: Resting Uterine Contraction Intensity: Moderate Extremities: normal Deep Tendon Reflex Grade: Normal +2 - Labs Labs: Laboratory Results - last 24 hr 06/11/16 06/11/16 22:10 22:10 WBC 6.8 RBC 3.92 Hgb 12.1 Hct 36.7 MCV 94 MCH 31 MCHC 33 RDW 14.1 Plt Count 248 Blood Type O POSITIVE Antibody Screen Negative
[2016-06-12] MEDS ORDERED: FLUARIX QUAD 2016-2017(36 MOS+) IM ONE (12:00)
--- NOTE | 2016-06-12 13:34 | Progress Note ---
Assessment and Plan A: IUP @40 weeks in Active labor, AROM Comfortable with epidural Category 1 tracing SVE /0, effective pushing with contraction resulting in Anterior lip GBS positive P: Routine care Continuous monitoring Continue to labor down GBS prophylaxis Subjective - Subjective Date of service: 06/12/16 Principal diagnosis: IUP 40 weeks, active labor Objective - Vital Signs Vital Signs: Vital Signs - 12hr 06/12/16 06/12/16 06/12/16 01:34 01:35 01:39 Temperature Pulse Rate 97 H 72 98 H Pulse Rate [ From Monitor] Respiratory Rate Blood Pressure Blood Pressure [Left Arm] O2 Sat by Pulse 96 94 92 Oximetry 06/12/16 06/12/16 06/12/16 01:44 01:47 01:49 Temperature Pulse Rate 79 73 73 Pulse Rate [ From Monitor] Respiratory Rate Blood Pressure Blood Pressure [Left Arm] O2 Sat by Pulse 93 94 93 Oximetry 06/12/16 06/12/16 06/12/16 01:52 01:54 01:58 Temperature Pulse Rate 75 73 80 Pulse Rate [ From Monitor] Respiratory Rate Blood Pressure Blood Pressure [Left Arm] O2 Sat by Pulse 93 94 94 Oximetry 06/12/16 06/12/16 06/12/16 01:59 02:03 02:04 Temperature Pulse Rate 73 78 71 Pulse Rate [ From Monitor] Respiratory Rate Blood Pressure Blood Pressure [Left Arm] O2 Sat by Pulse 94 93 94 Oximetry 06/12/16 06/12/16 06/12/16 02:09 02:10 02:14 Temperature Pulse Rate 93 H 79 102 H Pulse Rate [ From Monitor] Respiratory Rate Blood Pressure Blood Pressure [Left Arm] O2 Sat by Pulse 97 92 95 Oximetry 06/12/16 06/12/16 06/12/16 02:16 02:19 02:22 Temperature Pulse Rate 78 107 H 78 Pulse Rate [ From Monitor] Respiratory Rate Blood Pressure Blood Pressure [Left Arm] O2 Sat by Pulse 93 93 94 Oximetry 06/12/16 06/12/16 06/12/16 02:24 02:29 02:30 Temperature 98.3 F Pulse Rate 103 H 96 H Pulse Rate [ From Monitor] Respiratory 20 Rate Blood Pressure Blood Pressure [Left Arm] O2 Sat by Pulse 97 95 Oximetry 06/12/16 06/12/16 06/12/16 02:32 02:34 02:38 Temperature Pulse Rate 104 H 86 89 Pulse Rate [ From Monitor] Respiratory Rate Blood Pressure Blood Pressure [Left Arm] O2 Sat by Pulse 89 96 94 Oximetry 06/12/16 06/12/16 06/12/16 02:39 02:44 02:45 Temperature Pulse Rate 91 H 69 82 Pulse Rate [ From Monitor] Respiratory Rate Blood Pressure Blood Pressure [Left Arm] O2 Sat by Pulse 96 96 93 Oximetry 06/12/16 06/12/16 06/12/16 02:49 02:54 02:59 Temperature Pulse Rate 69 76 82 Pulse Rate [ From Monitor] Respiratory Rate Blood Pressure Blood Pressure [Left Arm] O2 Sat by Pulse 94 89 93 Oximetry 06/12/16 06/12/16 06/12/16 03:04 03:05 03:09 Temperature Pulse Rate 67 73 71 Pulse Rate [ From Monitor] Respiratory Rate Blood Pressure Blood Pressure [Left Arm] O2 Sat by Pulse 94 94 94 Oximetry 06/12/16 06/12/16 06/12/16 03:10 03:14 03:15 Temperature Pulse Rate 77 81 92 H Pulse Rate [ From Monitor] Respiratory Rate Blood Pressure Blood Pressure [Left Arm] O2 Sat by Pulse 94 96 94 Oximetry 06/12/16 06/12/16 06/12/16 03:19 03:21 03:24 Temperature Pulse Rate 96 H 68 99 H Pulse Rate [ From Monitor] Respiratory Rate Blood Pressure Blood Pressure [Left Arm] O2 Sat by Pulse 97 94 96 Oximetry 06/12/16 06/12/16 06/12/16 03:27 03:29 03:32 Temperature Pulse Rate 71 67 86 Pulse Rate [ From Monitor] Respiratory Rate Blood Pressure Blood Pressure [Left Arm] O2 Sat by Pulse 94 94 94 Oximetry 06/12/16 06/12/16 06/12/16 03:34 03:37 03:39 Temperature Pulse Rate 91 H 92 H 96 H Pulse Rate [ From Monitor] Respiratory Rate Blood Pressure Blood Pressure [Left Arm] O2 Sat by Pulse 97 93 94 Oximetry 06/12/16 06/12/16 06/12/16 03:44 03:46 03:48 Temperature Pulse Rate 105 H 96 H 89 Pulse Rate [ From Monitor] Respiratory Rate Blood Pressure 128/65 125/63 131/60 Blood Pressure [Left Arm] O2 Sat by Pulse 93 Oximetry 06/12/16 06/12/16 06/12/16 03:49 03:50 03:52 Temperature Pulse Rate 99 H 91 H 95 H Pulse Rate [ From Monitor] Respiratory Rate Blood Pressure 134/64 129/60 Blood Pressure [Left Arm] O2 Sat by Pulse 98 94 Oximetry 06/12/16 06/12/16 06/12/16 03:54 03:56 03:58 Temperature Pulse Rate 78 85 83 Pulse Rate [ From Monitor] Respiratory Rate Blood Pressure 127/57 122/58 119/56 Blood Pressure [Left Arm] O2 Sat by Pulse 96 Oximetry 06/12/16 06/12/16 06/12/16 03:59 04:01 04:02 Temperature Pulse Rate 84 80 68 Pulse Rate [ From Monitor] Respiratory Rate Blood Pressure 136/69 133/62 Blood Pressure [Left Arm] O2 Sat by Pulse 98 Oximetry 06/12/16 06/12/16 06/12/16 04:04 04:06 04:08 Temperature Pulse Rate 70 72 74 Pulse Rate [ From Monitor] Respiratory Rate Blood Pressure 131/63 128/56 130/59 Blood Pressure [Left Arm] O2 Sat by Pulse 96 Oximetry 06/12/16 06/12/16 06/12/16 04:09 04:10 04:12 Temperature Pulse Rate 71 60 72 Pulse Rate [ From Monitor] Respiratory Rate Blood Pressure 124/60 132/63 Blood Pressure [Left Arm] O2 Sat by Pulse 94 Oximetry 06/12/16 06/12/16 06/12/16 04:14 04:16 04:18 Temperature Pulse Rate 65 67 62 Pulse Rate [ From Monitor] Respiratory Rate Blood Pressure 122/70 122/58 125/60 Blood Pressure [Left Arm] O2 Sat by Pulse 94 Oximetry 06/12/16 06/12/16 06/12/16 04:19 04:20 04:22 Temperature Pulse Rate 63 68 67 Pulse Rate [ From Monitor] Respiratory Rate Blood Pressure 118/59 134/59 Blood Pressure [Left Arm] O2 Sat by Pulse 97 Oximetry 06/12/16 06/12/16 06/12/16 04:24 04:26 04:28 Temperature Pulse Rate 70 71 62 Pulse Rate [ From Monitor] Respiratory Rate Blood Pressure 129/60 132/60 135/61 Blood Pressure [Left Arm] O2 Sat by Pulse 96 Oximetry 06/12/16 06/12/16 06/12/16 04:29 04:30 04:32 Temperature Pulse Rate 67 68 65 Pulse Rate [ From Monitor] Respiratory Rate Blood Pressure 137/60 137/61 Blood Pressure [Left Arm] O2 Sat by Pulse 97 Oximetry 06/12/16 06/12/16 06/12/16 04:34 04:35 04:36 Temperature 96.1 F L Pulse Rate 67 66 72 Pulse Rate [ From Monitor] Respiratory 18 Rate Blood Pressure 138/61 126/60 Blood Pressure [Left Arm] O2 Sat by Pulse 95 94 Oximetry 06/12/16 06/12/16 06/12/16 04:38 04:39 04:40 Temperature Pulse Rate 72 69 66 Pulse Rate [ From Monitor] Respiratory Rate Blood Pressure 134/60 138/64 Blood Pressure [Left Arm] O2 Sat by Pulse 96 Oximetry 06/12/16 06/12/16 06/12/16 04:42 04:44 04:46 Temperature Pulse Rate 68 68 70 Pulse Rate [ From Monitor] Respiratory Rate Blood Pressure 136/63 137/65 141/67 Blood Pressure [Left Arm] O2 Sat by Pulse 97 Oximetry 06/12/16 06/12/16 06/12/16 04:48 04:49 04:50 Temperature Pulse Rate 69 67 77 Pulse Rate [ From Monitor] Respiratory Rate Blood Pressure 134/62 131/60 Blood Pressure [Left Arm] O2 Sat by Pulse 98 Oximetry 06/12/16 06/12/16 06/12/16 04:52 04:54 04:56 Temperature Pulse Rate 69 71 74 Pulse Rate [ From Monitor] Respiratory Rate Blood Pressure 136/63 135/61 137/63 Blood Pressure [Left Arm] O2 Sat by Pulse 96 Oximetry 06/12/16 06/12/16 06/12/16 04:58 04:59 05:00 Temperature Pulse Rate 71 72 78 Pulse Rate [ From Monitor] Respiratory Rate Blood Pressure 137/62 134/62 Blood Pressure [Left Arm] O2 Sat by Pulse 97 Oximetry 06/12/16 06/12/16 06/12/16 05:02 05:04 05:06 Temperature Pulse Rate 69 70 71 Pulse Rate [ From Monitor] Respiratory Rate Blood Pressure 142/64 137/62 144/66 Blood Pressure [Left Arm] O2 Sat by Pulse 97 Oximetry 06/12/16 06/12/16 06/12/16 05:08 05:09 05:10 Temperature Pulse Rate 74 71 80 Pulse Rate [ From Monitor] Respiratory Rate Blood Pressure 139/63 139/62 Blood Pressure [Left Arm] O2 Sat by Pulse 97 Oximetry 06/12/16 06/12/16 06/12/16 05:12 05:14 05:16 Temperature Pulse Rate 71 78 70 Pulse Rate [ From Monitor] Respiratory Rate Blood Pressure 135/61 135/61 141/65 Blood Pressure [Left Arm] O2 Sat by Pulse 98 Oximetry 06/12/16 06/12/16 06/12/16 05:18 05:19 05:20 Temperature Pulse Rate 70 80 71 Pulse Rate [ From Monitor] Respiratory Rate Blood Pressure 140/63 143/64 Blood Pressure [Left Arm] O2 Sat by Pulse 99 Oximetry 06/12/16 06/12/16 06/12/16 05:22 05:24 05:25 Temperature Pulse Rate 76 78 71 Pulse Rate [ From Monitor] Respiratory Rate Blood Pressure 129/59 140/63 Blood Pressure [Left Arm] O2 Sat by Pulse 96 Oximetry 06/12/16 06/12/16 06/12/16 05:26 05:28 05:29 Temperature Pulse Rate 75 73 75 Pulse Rate [ From Monitor] Respiratory Rate Blood Pressure 132/60 131/60 Blood Pressure [Left Arm] O2 Sat by Pulse 95 Oximetry 06/12/16 06/12/16 06/12/16 05:31 05:32 05:34 Temperature Pulse Rate 67 67 78 Pulse Rate [ From Monitor] Respiratory Rate Blood Pressure 134/63 135/63 133/62 Blood Pressure [Left Arm] O2 Sat by Pulse 96 Oximetry 06/12/16 06/12/16 06/12/16 05:36 05:38 05:39 Temperature Pulse Rate 81 66 68 Pulse Rate [ From Monitor] Respiratory Rate Blood Pressure 141/67 144/66 Blood Pressure [Left Arm] O2 Sat by Pulse 96 Oximetry 06/12/16 06/12/16 06/12/16 05:40 05:42 05:44 Temperature Pulse Rate 64 71 64 Pulse Rate [ From Monitor] Respiratory Rate Blood Pressure 145/65 142/64 144/67 Blood Pressure [Left Arm] O2 Sat by Pulse 97 Oximetry 06/12/16 06/12/16 06/12/16 05:46 05:49 05:50 Temperature Pulse Rate 63 66 66 Pulse Rate [ From Monitor] Respiratory Rate Blood Pressure 140/59 143/84 142/65 Blood Pressure [Left Arm] O2 Sat by Pulse 100 Oximetry 06/12/16 06/12/16 06/12/16 05:52 05:54 05:56 Temperature Pulse Rate 75 75 71 Pulse Rate [ From Monitor] Respiratory Rate Blood Pressure 142/65 160/72 141/65 Blood Pressure [Left Arm] O2 Sat by Pulse 96 Oximetry 06/12/16 06/12/16 06/12/16 05:58 05:59 06:01 Temperature Pulse Rate 74 84 76 Pulse Rate [ From Monitor] Respiratory Rate Blood Pressure 141/63 137/81 Blood Pressure [Left Arm] O2 Sat by Pulse 94 Oximetry 06/12/16 06/12/16 06/12/16 06:04 06:09 06:10 Temperature Pulse Rate 86 94 H 72 Pulse Rate [ From Monitor] Respiratory Rate Blood Pressure 136/77 148/65 146/65 Blood Pressure [Left Arm] O2 Sat by Pulse 97 97 Oximetry 06/12/16 06/12/16 06/12/16 06:12 06:13 06:14 Temperature Pulse Rate 67 84 72 Pulse Rate [ From Monitor] Respiratory Rate Blood Pressure 140/63 Blood Pressure [Left Arm] O2 Sat by Pulse 93 94 Oximetry 06/12/16 06/12/16 06/12/16 06:15 06:19 06:24 Temperature Pulse Rate 69 79 68 Pulse Rate [ From Monitor] Respiratory Rate Blood Pressure 150/66 Blood Pressure [Left Arm] O2 Sat by Pulse 95 98 Oximetry 06/12/16 06/12/16 06/12/16 06:29 06:30 06:32 Temperature 97 F L Pulse Rate 60 64 Pulse Rate [ From Monitor] Respiratory 20 Rate Blood Pressure 157/71 Blood Pressure [Left Arm] O2 Sat by Pulse 96 Oximetry 06/12/16 06/12/16 06/12/16 06:34 06:38 06:39 Temperature Pulse Rate 74 69 77 Pulse Rate [ From Monitor] Respiratory Rate Blood Pressure Blood Pressure [Left Arm] O2 Sat by Pulse 97 94 98 Oximetry 06/12/16 06/12/16 06/12/16 06:44 06:46 06:47 Temperature Pulse Rate 79 64 69 Pulse Rate [ From Monitor] Respiratory Rate Blood Pressure 140/63 Blood Pressure [Left Arm] O2 Sat by Pulse 97 92 Oximetry 06/12/16 06/12/16 06/12/16 06:49 06:52 06:54 Temperature Pulse Rate 62 75 64 Pulse Rate [ From Monitor] Respiratory Rate Blood Pressure Blood Pressure [Left Arm] O2 Sat by Pulse 96 94 97 Oximetry 06/12/16 06/12/16 06/12/16 06:59 07:01 07:04 Temperature Pulse Rate 59 L 65 64 Pulse Rate [ From Monitor] Respiratory Rate Blood Pressure 141/65 Blood Pressure [Left Arm] O2 Sat by Pulse 96 95 Oximetry 06/12/16 06/12/16 06/12/16 07:09 07:13 07:14 Temperature Pulse Rate 68 72 78 Pulse Rate [ From Monitor] Respiratory Rate Blood Pressure Blood Pressure [Left Arm] O2 Sat by Pulse 97 94 96 Oximetry 06/12/16 06/12/16 06/12/16 07:16 07:19 07:21 Temperature Pulse Rate 64 79 65 Pulse Rate [ From Monitor] Respiratory Rate Blood Pressure 136/63 Blood Pressure [Left Arm] O2 Sat by Pulse 96 94 Oximetry 06/12/16 06/12/16 06/12/16 07:24 07:25 07:26 Temperature 98.2 F Pulse Rate 61 70 Pulse Rate [ 62 From Monitor] Respiratory 16 Rate Blood Pressure 134/63 Blood Pressure 134/63 [Left Arm] O2 Sat by Pulse 94 95 Oximetry 06/12/16 06/12/16 06/12/16 07:29 07:32 07:34 Temperature Pulse Rate 70 71 78 Pulse Rate [ From Monitor] Respiratory Rate Blood Pressure 133/74 Blood Pressure [Left Arm] O2 Sat by Pulse 94 97 Oximetry 06/12/16 06/12/16 06/12/16 07:35 07:39 07:41 Temperature Pulse Rate 76 87 70 Pulse Rate [ From Monitor] Respiratory Rate Blood Pressure Blood Pressure [Left Arm] O2 Sat by Pulse 91 97 93 Oximetry 06/12/16 06/12/16 06/12/16 07:44 07:46 07:48 Temperature Pulse Rate 77 81 69 Pulse Rate [ From Monitor] Respiratory Rate Blood Pressure 127/62 Blood Pressure [Left Arm] O2 Sat by Pulse 93 94 Oximetry 06/12/16 06/12/16 06/12/16 07:49 07:54 07:57 Temperature Pulse Rate 78 104 H 69 Pulse Rate [ From Monitor] Respiratory Rate Blood Pressure Blood Pressure [Left Arm] O2 Sat by Pulse 95 97 83 L Oximetry 02/06/12/16 06/12/16 07:59 08:01 08:18 Temperature Pulse Rate 74 85 74 Pulse Rate [ From Monitor] Respiratory Rate Blood Pressure 126/71 127/60 Blood Pressure [Left Arm] O2 Sat by Pulse 97 Oximetry 06/12/16 06/12/16 06/12/16 08:31 08:36 08:41 Temperature Pulse Rate 72 92 H 72 Pulse Rate [ From Monitor] Respiratory Rate Blood Pressure 130/62 Blood Pressure [Left Arm] O2 Sat by Pulse 96 97 98 Oximetry 06/12/16 06/12/16 06/12/16 08:46 08:51 08:56 Temperature Pulse Rate 84 71 73 Pulse Rate [ From Monitor] Respiratory Rate Blood Pressure 127/70 Blood Pressure [Left Arm] O2 Sat by Pulse 98 98 97 Oximetry 06/12/16 06/12/16 06/12/16 09:01 09:06 09:11 Temperature Pulse Rate 65 76 86 Pulse Rate [ From Monitor] Respiratory Rate Blood Pressure 109/57 Blood Pressure [Left Arm] O2 Sat by Pulse 97 97 98 Oximetry 06/12/16 06/12/16 06/12/16 09:16 09:32 09:48 Temperature Pulse Rate 77 85 111 H Pulse Rate [ From Monitor] Respiratory Rate Blood Pressure 134/68 148/80 143/80 Blood Pressure [Left Arm] O2 Sat by Pulse Oximetry 06/12/16 06/12/16 06/12/16 10:02 10:16 10:32 Temperature Pulse Rate 91 H 74 74 Pulse Rate [ From Monitor] Respiratory Rate Blood Pressure 121/71 119/48 100/50 Blood Pressure [Left Arm] O2 Sat by Pulse Oximetry 06/12/16 06/12/16 06/12/16 10:47 11:01 11:16 Temperature Pulse Rate 77 86 82 Pulse Rate [ From Monitor] Respiratory Rate Blood Pressure 102/54 106/53 97/52 Blood Pressure [Left Arm] O2 Sat by Pulse Oximetry 06/12/16 06/12/16 06/12/16 11:30 11:31 11:35 Temperature Pulse Rate 87 77 82 Pulse Rate [ From Monitor] Respiratory Rate Blood Pressure 127/62 Blood Pressure [Left Arm] O2 Sat by Pulse 100 100 Oximetry 06/12/16 06/12/16 06/12/16 12:01 12:17 12:31 Temperature Pulse Rate 80 75 82 Pulse Rate [ From Monitor] Respiratory Rate Blood Pressure 127/78 131/61 139/72 Blood Pressure [Left Arm] O2 Sat by Pulse Oximetry 06/12/16 12:46 Temperature Pulse Rate 76 Pulse Rate [ From Monitor] Respiratory Rate Blood Pressure 155/79 Blood Pressure [Left Arm] O2 Sat by Pulse Oximetry - Exam Cardiovascular: Regular rate Lungs: Normal air movement FHR: category 1 Uterine Contraction Monitor Mode: External Cervical Dilatation: 9 (anterior lip) Cervical Effacement Percentage: 90 station: 0 Uterine Contraction Frequency (min): 2-4 Uterine Contraction Pattern: Regular Uterine Tone Measurement Phase: Resting Uterine Contraction Intensity: Strong/Firm - Labs Labs: Laboratory Results - last 24 hr 06/11/16 06/11/16 22:10 22:10 WBC 6.8 RBC 3.92 Hgb 12.1 Hct 36.7 MCV 94 MCH 31 MCHC 33 RDW 14.1 Plt Count 248 Blood Type O POSITIVE Antibody Screen Negative
[2016-06-12] MEDS ORDERED: NACL 0.9% 500 ML 500 ML IV ONE (16:43)
[2016-06-12] MEDS ORDERED: BICITRA ONE (16:49)
[2016-06-12] MEDS ORDERED: REGLAN ONE (16:50)
[2016-06-12] MEDS ORDERED: PEPCID IV ONE ×2 (16:50→16:54)
[2016-06-12] MEDS ORDERED: REGLAN IV ONE (16:54)
[2016-06-12] MEDS ORDERED: EMLA TP PRN (16:54)
[2016-06-12] MEDS ORDERED: BICITRA PO ONE (16:54)
[2016-06-12] MEDS ORDERED: ANCEF/STERILE WATER 2 GM/20 ML 2 GM/20 ML SYRINGE IV NR (17:00)
[2016-06-12] MEDS ORDERED: LACTATED RINGERS 1,000 ML IV NR (17:00)
--- NOTE | 2016-06-12 17:01 | Event Note ---
Date: 06/12/16 Called to see patient said to be tachycardiac. Patient at 0 to +1 station with caput on exam, infant OP. Cat 2 tracing noted with tachycardia. Despite pushing with patinet, minimal decsent noted to +1 to +2 station. Patient and her family adamantly decline vacuum-it appears family had a bad outcome after vacuum. Plan is to proceed with primary LTCS. Patient has been consented
--- NOTE | 2016-06-12 17:05 | Progress Note ---
Assessment and Plan A: IUP at 40 weeks in active labor, AROM Category 2 tracing with tachycardia, variable and occasional late decerations Ineffective pushing x 2 hours SVE 10/100/+1 since 1415 today GBS + P: Consultation with Dr. Bee for tachycardia, lack of maternal pushing effort and OP positioning at 1600. Turned over care to Dr. Bee for Primary C/S at 1645 Subjective - Subjective Date of service: 06/12/16 Principal diagnosis: IUP 40 weeks, active labor Interval history: SVE 10/100/+1 since 1415 today. Objective - Vital Signs Vital Signs: Vital Signs - 12hr 06/12/16 06/12/16 06/12/16 04:58 04:59 05:00 Temperature Pulse Rate 71 72 78 Pulse Rate [ From Monitor] Respiratory Rate Blood Pressure 137/62 134/62 Blood Pressure [Left Arm] O2 Sat by Pulse 97 Oximetry 06/12/16 06/12/16 06/12/16 05:02 05:04 05:06 Temperature Pulse Rate 69 70 71 Pulse Rate [ From Monitor] Respiratory Rate Blood Pressure 142/64 137/62 144/66 Blood Pressure [Left Arm] O2 Sat by Pulse 97 Oximetry 06/12/16 06/12/16 06/12/16 05:08 05:09 05:10 Temperature Pulse Rate 74 71 80 Pulse Rate [ From Monitor] Respiratory Rate Blood Pressure 139/63 139/62 Blood Pressure [Left Arm] O2 Sat by Pulse 97 Oximetry 06/12/16 06/12/16 06/12/16 05:12 05:14 05:16 Temperature Pulse Rate 71 78 70 Pulse Rate [ From Monitor] Respiratory Rate Blood Pressure 135/61 135/61 141/65 Blood Pressure [Left Arm] O2 Sat by Pulse 98 Oximetry 06/12/16 06/12/16 06/12/16 05:18 05:19 05:20 Temperature Pulse Rate 70 80 71 Pulse Rate [ From Monitor] Respiratory Rate Blood Pressure 140/63 143/64 Blood Pressure [Left Arm] O2 Sat by Pulse 99 Oximetry 06/12/16 06/12/16 06/12/16 05:22 05:24 05:25 Temperature Pulse Rate 76 78 71 Pulse Rate [ From Monitor] Respiratory Rate Blood Pressure 129/59 140/63 Blood Pressure [Left Arm] O2 Sat by Pulse 96 Oximetry 06/12/16 06/12/16 06/12/16 05:26 05:28 05:29 Temperature Pulse Rate 75 73 75 Pulse Rate [ From Monitor] Respiratory Rate Blood Pressure 132/60 131/60 Blood Pressure [Left Arm] O2 Sat by Pulse 95 Oximetry 06/12/16 06/12/16 06/12/16 05:31 05:32 05:34 Temperature Pulse Rate 67 67 78 Pulse Rate [ From Monitor] Respiratory Rate Blood Pressure 134/63 135/63 133/62 Blood Pressure [Left Arm] O2 Sat by Pulse 96 Oximetry 06/12/16 06/12/16 06/12/16 05:36 05:38 05:39 Temperature Pulse Rate 81 66 68 Pulse Rate [ From Monitor] Respiratory Rate Blood Pressure 141/67 144/66 Blood Pressure [Left Arm] O2 Sat by Pulse 96 Oximetry 06/12/16 06/12/16 06/12/16 05:40 05:42 05:44 Temperature Pulse Rate 64 71 64 Pulse Rate [ From Monitor] Respiratory Rate Blood Pressure 145/65 142/64 144/67 Blood Pressure [Left Arm] O2 Sat by Pulse 97 Oximetry 06/12/16 06/12/16 06/12/16 05:46 05:49 05:50 Temperature Pulse Rate 63 66 66 Pulse Rate [ From Monitor] Respiratory Rate Blood Pressure 140/59 143/84 142/65 Blood Pressure [Left Arm] O2 Sat by Pulse 100 Oximetry 06/12/16 06/12/16 06/12/16 05:52 05:54 05:56 Temperature Pulse Rate 75 75 71 Pulse Rate [ From Monitor] Respiratory Rate Blood Pressure 142/65 160/72 141/65 Blood Pressure [Left Arm] O2 Sat by Pulse 96 Oximetry 06/12/16 06/12/16 06/12/16 05:58 05:59 06:01 Temperature Pulse Rate 74 84 76 Pulse Rate [ From Monitor] Respiratory Rate Blood Pressure 141/63 137/81 Blood Pressure [Left Arm] O2 Sat by Pulse 94 Oximetry 06/12/16 06/12/16 06/12/16 06:04 06:09 06:10 Temperature Pulse Rate 86 94 H 72 Pulse Rate [ From Monitor] Respiratory Rate Blood Pressure 136/77 148/65 146/65 Blood Pressure [Left Arm] O2 Sat by Pulse 97 97 Oximetry 06/12/16 06/12/16 06/12/16 06:12 06:13 06:14 Temperature Pulse Rate 67 84 72 Pulse Rate [ From Monitor] Respiratory Rate Blood Pressure 140/63 Blood Pressure [Left Arm] O2 Sat by Pulse 93 94 Oximetry 06/12/16 06/12/16 06/12/16 06:15 06:19 06:24 Temperature Pulse Rate 69 79 68 Pulse Rate [ From Monitor] Respiratory Rate Blood Pressure 150/66 Blood Pressure [Left Arm] O2 Sat by Pulse 95 98 Oximetry 06/12/16 06/12/16 06/12/16 06:29 06:30 06:32 Temperature 97 F L Pulse Rate 60 64 Pulse Rate [ From Monitor] Respiratory 20 Rate Blood Pressure 157/71 Blood Pressure [Left Arm] O2 Sat by Pulse 96 Oximetry 06/12/16 06/12/16 06/12/16 06:34 06:38 06:39 Temperature Pulse Rate 74 69 77 Pulse Rate [ From Monitor] Respiratory Rate Blood Pressure Blood Pressure [Left Arm] O2 Sat by Pulse 97 94 98 Oximetry 06/12/16 06/12/16 06/12/16 06:44 06:46 06:47 Temperature Pulse Rate 79 64 69 Pulse Rate [ From Monitor] Respiratory Rate Blood Pressure 140/63 Blood Pressure [Left Arm] O2 Sat by Pulse 97 92 Oximetry 06/12/16 06/12/16 06/12/16 06:49 06:52 06:54 Temperature Pulse Rate 62 75 64 Pulse Rate [ From Monitor] Respiratory Rate Blood Pressure Blood Pressure [Left Arm] O2 Sat by Pulse 96 94 97 Oximetry 06/12/16 06/12/16 06/12/16 06:59 07:01 07:04 Temperature Pulse Rate 59 L 65 64 Pulse Rate [ From Monitor] Respiratory Rate Blood Pressure 141/65 Blood Pressure [Left Arm] O2 Sat by Pulse 96 95 Oximetry 06/12/16 06/12/16 06/12/16 07:09 07:13 07:14 Temperature Pulse Rate 68 72 78 Pulse Rate [ From Monitor] Respiratory Rate Blood Pressure Blood Pressure [Left Arm] O2 Sat by Pulse 97 94 96 Oximetry 06/12/16 06/12/16 06/12/16 07:16 07:19 07:21 Temperature Pulse Rate 64 79 65 Pulse Rate [ From Monitor] Respiratory Rate Blood Pressure 136/63 Blood Pressure [Left Arm] O2 Sat by Pulse 96 94 Oximetry 06/12/16 06/12/16 06/12/16 07:24 07:25 07:26 Temperature 98.2 F Pulse Rate 61 70 Pulse Rate [ 62 From Monitor] Respiratory 16 Rate Blood Pressure 134/63 Blood Pressure 134/63 [Left Arm] O2 Sat by Pulse 94 95 Oximetry 06/12/16 06/12/16 06/12/16 07:29 07:32 07:34 Temperature Pulse Rate 70 71 78 Pulse Rate [ From Monitor] Respiratory Rate Blood Pressure 133/74 Blood Pressure [Left Arm] O2 Sat by Pulse 94 97 Oximetry 06/12/16 06/12/16 06/12/16 07:35 07:39 07:41 Temperature Pulse Rate 76 87 70 Pulse Rate [ From Monitor] Respiratory Rate Blood Pressure Blood Pressure [Left Arm] O2 Sat by Pulse 91 97 93 Oximetry 06/12/16 06/12/16 06/12/16 07:44 07:46 07:48 Temperature Pulse Rate 77 81 69 Pulse Rate [ From Monitor] Respiratory Rate Blood Pressure 127/62 Blood Pressure [Left Arm] O2 Sat by Pulse 93 94 Oximetry 06/12/16 06/12/16 06/12/16 07:49 07:54 07:57 Temperature Pulse Rate 78 104 H 69 Pulse Rate [ From Monitor] Respiratory Rate Blood Pressure Blood Pressure [Left Arm] O2 Sat by Pulse 95 97 83 L Oximetry 06/12/16 06/12/16 06/12/16 07:59 08:01 08:18 Temperature Pulse Rate 74 85 74 Pulse Rate [ From Monitor] Respiratory Rate Blood Pressure 126/71 127/60 Blood Pressure [Left Arm] O2 Sat by Pulse 97 Oximetry 06/12/16 06/12/16 06/12/16 08:31 08:36 08:41 Temperature Pulse Rate 72 92 H 72 Pulse Rate [ From Monitor] Respiratory Rate Blood Pressure 130/62 Blood Pressure [Left Arm] O2 Sat by Pulse 96 97 98 Oximetry 06/12/16 06/12/16 06/12/16 08:46 08:51 08:56 Temperature Pulse Rate 84 71 73 Pulse Rate [ From Monitor] Respiratory Rate Blood Pressure 127/70 Blood Pressure [Left Arm] O2 Sat by Pulse 98 98 97 Oximetry 06/12/16 06/12/16 06/12/16 09:01 09:06 09:11 Temperature Pulse Rate 65 76 86 Pulse Rate [ From Monitor] Respiratory Rate Blood Pressure 109/57 Blood Pressure [Left Arm] O2 Sat by Pulse 97 97 98 Oximetry 06/12/16 06/12/16 06/12/16 09:16 09:32 09:48 Temperature Pulse Rate 77 85 111 H Pulse Rate [ From Monitor] Respiratory Rate Blood Pressure 134/68 148/80 143/80 Blood Pressure [Left Arm] O2 Sat by Pulse Oximetry 06/12/16 06/12/16 06/12/16 10:02 10:16 10:32 Temperature Pulse Rate 91 H 74 74 Pulse Rate [ From Monitor] Respiratory Rate Blood Pressure 121/71 119/48 100/50 Blood Pressure [Left Arm] O2 Sat by Pulse Oximetry 06/12/16 06/12/16 06/12/16 10:47 11:01 11:16 Temperature Pulse Rate 77 86 82 Pulse Rate [ From Monitor] Respiratory Rate Blood Pressure 102/54 106/53 97/52 Blood Pressure [Left Arm] O2 Sat by Pulse Oximetry 06/12/16 06/12/16 06/12/16 11:30 11:31 11:35 Temperature Pulse Rate 87 77 82 Pulse Rate [ From Monitor] Respiratory Rate Blood Pressure 127/62 Blood Pressure [Left Arm] O2 Sat by Pulse 100 100 Oximetry 06/12/16 06/12/16 06/12/16 12:01 12:17 12:31 Temperature Pulse Rate 80 75 82 Pulse Rate [ From Monitor] Respiratory Rate Blood Pressure 127/78 131/61 139/72 Blood Pressure [Left Arm] O2 Sat by Pulse Oximetry 06/12/16 06/12/16 06/12/16 12:46 13:31 15:00 Temperature 98.5 F Pulse Rate 76 78 Pulse Rate [ From Monitor] Respiratory 20 Rate Blood Pressure 155/79 103/55 Blood Pressure [Left Arm] O2 Sat by Pulse Oximetry 06/12/16 06/12/16 06/12/16 15:03 15:18 15:19 Temperature Pulse Rate 106 H 73 Pulse Rate [ From Monitor] Respiratory Rate Blood Pressure 132/85 Blood Pressure [Left Arm] O2 Sat by Pulse 73 L 70 L Oximetry 06/12/16 06/12/16 06/12/16 15:24 15:26 15:28 Temperature Pulse Rate 93 H 155 H Pulse Rate [ From Monitor] Respiratory Rate Blood Pressure 132/86 Blood Pressure [Left Arm] O2 Sat by Pulse 100 85 Oximetry 06/12/16 06/12/16 06/12/16 15:31 15:47 15:49 Temperature Pulse Rate 76 67 80 Pulse Rate [ From Monitor] Respiratory Rate Blood Pressure 118/65 151/108 Blood Pressure [Left Arm] O2 Sat by Pulse 0 L Oximetry 06/12/16 06/12/16 06/12/16 15:50 15:52 15:55 Temperature 98.6 F Pulse Rate 103 H 83 Pulse Rate [ From Monitor] Respiratory 22 Rate Blood Pressure Blood Pressure [Left Arm] O2 Sat by Pulse 99 84 Oximetry 06/12/16 06/12/16 06/12/16 16:00 16:03 16:05 Temperature Pulse Rate 114 H 85 110 H Pulse Rate [ From Monitor] Respiratory Rate Blood Pressure 124/59 Blood Pressure [Left Arm] O2 Sat by Pulse 99 97 Oximetry 06/12/16 06/12/16 06/12/16 16:10 16:15 16:18 Temperature Pulse Rate 41 L 117 H 98 H Pulse Rate [ From Monitor] Respiratory Rate Blood Pressure 247/143 Blood Pressure [Left Arm] O2 Sat by Pulse 85 96 Oximetry 06/12/16 06/12/16 06/12/16 16:28 16:33 16:38 Temperature Pulse Rate 89 93 H Pulse Rate [ From Monitor] Respiratory Rate Blood Pressure Blood Pressure [Left Arm] O2 Sat by Pulse 98 96 96 Oximetry 06/12/16 06/12/16 06/12/16 16:43 16:46 16:48 Temperature Pulse Rate 94 H 79 87 Pulse Rate [ From Monitor] Respiratory Rate Blood Pressure 133/74 Blood Pressure [Left Arm] O2 Sat by Pulse 97 96 Oximetry 06/12/16 06/12/16 16:49 16:53 Temperature Pulse Rate 96 H 82 Pulse Rate [ From Monitor] Respiratory Rate Blood Pressure Blood Pressure [Left Arm] O2 Sat by Pulse 93 97 Oximetry - Exam Cardiovascular: Regular rate Lungs: Normal air movement FHR: category 2 FHR comments: tachycardia to 170-180s sustained with multiple variable decelerations Uterine Contraction Monitor Mode: External Cervical Dilatation: 10 Cervical Effacement Percentage: 100 station: +1 Uterine Contraction Pattern: Irregular (Pitocin discontinued for category 2 tracing) Uterine Tone Measurement Phase: Resting Uterine Contraction Intensity: Strong/Firm Deep Tendon Reflex Grade: Normal +2 - Labs Labs: Abnormal Labs 06/11/16 22:10 Crossmatch See Detail Laboratory Results - last 24 hr 06/11/16 06/11/16 22:10 22:10 WBC 6.8 RBC 3.92 Hgb 12.1 Hct 36.7 MCV 94 MCH 31 MCHC 33 RDW 14.1 Plt Count 248 Blood Type O POSITIVE Antibody Screen Negative Crossmatch See Detail
[2016-06-12] MEDS ORDERED: ANCEF/STERILE WATER 2 GM/20 ML IV ONE (17:07)
[2016-06-12] MEDS ORDERED: MORPHINE ONE (17:11)
[2016-06-12] MEDS ORDERED: ZOFRAN ONE (17:21)
[2016-06-12] MEDS ORDERED: ANCEF IV ONE (17:21)
[2016-06-12] MEDS ORDERED: WATER FOR IRRIG STERILE IR ONE (17:25)
[2016-06-12] MEDS ORDERED: NACL 0.9% IR ONE (17:25)
[2016-06-12] MEDS ORDERED: VERSED ONE (17:45)
[2016-06-12] MEDS ORDERED: DILAUDID ONE (17:57)
[2016-06-12] MEDS ORDERED: NACL 0.9% 500 ML 500 ML IV NR (18:00)
--- NOTE | 2016-06-12 18:43 | Operative Report ---
Operative Report Operative Report: DATE: 06/12/2016 PREOPERATIVE DIAGNOSIS: 20 y/o at 40+ weeks gestation, category 2 tracing , arrest of descent POSTOP DIAGNOSIS: As above plus a severely impacted , Cervical extension of hysterotomy incision NAME OF PROCEDURE: Primary low transverse section SURGEON: LUZ ELENA MARKHAM MD METHOD CONSULTANT: [] ANESTHESIA: Epidural EBL: 700 mL PATHOLOGY SPECIMEN: None URINE OUTPUT: 250 mL clear FINDINGS: Male in cephalic presentation, severely impacted head, delivery was 17:43, infant weight was 6 lbs. 13 oz. or 3092 g, Apgars 6 and 8 cervical extension of hysterotomy noted, otherwise normal uterus tubes and ovaries bilaterally DESCRIPTION OF PROCEDURE: After informed consent, patient was taken to the operating room where she was prepped and draped in a sterile fashion. Pfannestial incision was performed 2 cm above the pubic symphysis. This was then carried down to the underlying rectus fascia which was scored in the midline. The fascial incision was extended laterally with the use of Saba scissors, anterior leaf was then grasped with Trang's elevated dissected sharply and bluntly off the underlying rectus. In a similar fashion the inferior leaf was grasped elevated dissected sharply and bluntly off the underlying rectus. The rectus was in the midline and the peritoneal cavity was entered without difficulty. After good visualization of the bladder the peritoneal layer was extended up and down; bladder blade was placed in the patient's pelvic cavity, bladder flap was created without difficulty. A hysterotomy incision was then performed with clear amniotic fluid noted. Infant in cephalic presentation and caput was severly impacted. This was delivered after dislodging the caput with some difficulty; cervical extension of the hysterotomy was noted. Infant cord was then clamped cut and was handed over to waiting NICU staff. The placenta was then delivered intact, the uterus was then exteriorized cleared of all clots and debris. The cervical extension was repaired with [address] 1 in a continous manner, using the same stitch, the initial layer was imbricated. Her hysterotomy incision was then closed in a running locked fashion with 0 Vicryl on a CTX; using the same suture were able to imbricate the initial layer. The uterus was then returned to the patient's pelvic cavity; the peritoneal edges were grasped with hemostats and Annika's; irrigation was used to clear the gutters of all clots and debris. Tisseel hemostatic agent was applied copiously over the hysterotomy incision. The peritoneal layer was closed in a running fashion with 0 Vicryl; the rectus was reapproximated with a single [id number] stitch. The fascia was then closed in a running fashion with 0 Vicryl; the subcutaneous layer was reapproximated with a single [id number] stitch. The skin was then closed in a subcuticular manner with 4-0 Monocryl. She tolerated the procedure well lap and instrument counts were correct 2, she did receive 2 grams of Ancef prior to the procedure. She is transferred to PACU in stable condition.
[2016-06-12] MEDS ORDERED: MYLICON PO PRN (18:44)
[2016-06-12] MEDS ORDERED: ANUCORT-HC PR PRN (18:44)
[2016-06-12] MEDS ORDERED: LANSINOH TP PRN (18:44)
[2016-06-12] MEDS ORDERED: TYLENOL PO PRN (18:44)
[2016-06-12] MEDS ORDERED: TUCKS PAD TP PRN (18:44)
[2016-06-12] MEDS ORDERED: SENOKOT PO PRN (18:44)
[2016-06-12] MEDS ORDERED: MILK OF MAGNESIA PO PRN (18:44)
--- NOTE | 2016-06-12 18:44 | Anesthesia Day of Surgery ---
Anesthesia Day of Surgery - Day of Surgery Patient Examined: Yes Patient H&P Reviewed: Yes Patient is NPO: Yes
--- NOTE | 2016-06-12 18:44 | Post Anesthesia Evaluation ---
- Post Anesthesia Evaluation Patient Participated: Yes Airway Patent: Yes Stable Respiratory Function: Yes Nausea/Vomiting: No Temp > 96.8F: Yes Pain Manageable: Yes Adequeate Hydration: Yes Anesthesia Complications: No Block Receding Appropriately: Yes Patient on Ventilator: No
[2016-06-12] MEDS ORDERED: MORPHINE IV PRN ×2 (18:46)
[2016-06-12] MEDS ORDERED: DEMEROL IV PRN (18:47)
[2016-06-12] MEDS ORDERED: SODIUM CHLORIDE FLUSH SYRINGE 10 ML IV NR (19:00)
[2016-06-12] MEDS: TORADOL IV PRN (19:38)
[2016-06-12] MEDS: D5LR 1,000 ML IV SCH (23:50)
[2016-06-13] MEDS: TORADOL IV PRN ×2 (03:24→08:24)
[2016-06-13] MEDS ORDERED: BOOSTRIX IM ONE (06:00)
[2016-06-13 06:57] LABS: Hematocrit 29.1 % (30.3-42.9); Hemoglobin 9.6 gm/dl (10.1-14.3)
[2016-06-13] MEDS: D5LR 1,000 ML IV SCH (08:22)
--- NOTE | 2016-06-13 09:21 | Progress Note ---
Assessment and Plan A: POD1 s/p LTCS Pain well controlled Infant doing well Ambulating VSS, dressing dry and intact P: Routine postop care Encouraged increased ambulation Plan for d/c on POD3 as tolerated Subjective - Subjective Date of service: 06/13/16 Principal diagnosis: POD1 Interval history: SVE 10/100/+1 since 1415 today. Patient reports: appetite normal, pain well controlled, ambulating normally, no voiding normally ([place]ez just removed this AM and has not voided yet.), no flatus [place]: doing well Objective - Vital Signs Latest vital signs: Vital Signs Temp Pulse Pulse Resp BP BP Pulse Ox 06/13/16 08:56 98.9 F 101 H 20 116/57 06/13/16 05:25 98.6 F 95 H 18 115/55 06/13/16 03:24 20 06/13/16 01:15 99 F 97 H 20 122/53 06/12/16 20:35 98.2 F 81 20 143/74 06/12/16 20:03 98.5 F 06/12/16 20:00 85 12 143/80 97 06/12/16 19:55 88 15 144/80 98 06/12/16 19:51 85 15 142/43 98 06/12/16 19:45 92 H 13 146/81 98 06/12/16 19:40 90 12 136/63 98 06/12/16 19:38 12 06/12/16 19:35 85 15 146/80 97 06/12/16 19:30 90 12 145/81 99 06/12/16 19:26 93 H 15 98 06/12/16 19:20 94 H 15 126/62 100 06/12/16 19:16 89 14 126/62 97 06/12/16 19:10 85 15 126/62 100 06/12/16 19:06 88 13 126/62 100 06/12/16 19:00 98.3 F 87 14 126/62 100 06/12/16 18:56 89 10 L 126/62 100 06/12/16 18:50 109 H 19 100 06/12/16 18:46 88 16 99 06/12/16 18:42 85 15 100 06/12/16 16:53 82 97 06/12/16 16:49 96 H 93 06/12/16 16:48 87 96 06/12/16 16:46 79 133/74 06/12/16 16:43 94 H 97 06/12/16 16:38 93 H 96 06/12/16 16:33 89 96 06/12/16 16:28 98 06/12/16 16:18 98 H 247/143 06/12/16 16:15 117 H 96 06/12/16 16:10 41 L 85 06/12/16 16:05 110 H 97 06/12/16 16:03 85 124/59 06/12/16 16:00 114 H 99 06/12/16 15:55 83 84 06/12/16 15:52 98.6 F 22 06/12/16 15:50 103 H 99 06/12/16 15:49 80 0 L 06/12/16 15:47 67 151/108 06/12/16 15:31 76 118/65 06/12/16 15:28 155 H 132/86 06/12/16 15:26 85 06/12/16 15:24 93 H 100 06/12/16 15:19 73 70 L 06/12/16 15:18 73 L 06/12/16 15:03 106 H 132/85 06/12/16 15:00 98.5 F 20 06/12/16 13:31 78 103/55 06/12/16 12:46 76 155/79 06/12/16 12:31 82 139/72 06/12/16 12:17 75 131/61 06/12/16 12:01 80 127/78 06/12/16 11:35 82 100 06/12/16 11:31 77 127/62 06/12/16 11:30 87 100 06/12/16 11:16 82 97/52 06/12/16 11:01 86 106/53 06/12/16 10:47 77 102/54 06/12/16 10:32 74 100/50 06/12/16 10:16 74 119/48 06/12/16 10:02 91 H 121/71 06/12/16 09:48 111 H 143/80 06/12/16 09:32 85 148/80 06/12/16 09:16 77 134/68 Intake and Output 06/12/16 06/13/16 06/13/16 22:59 06:59 14:59 Intake Total 1539 146 3502 Output Total 850 400 Balance 746 286 1540 Intake: IV 7004 564 2223 D5lr 1,000 ml @ 125 mls/ 625 1000 hr IV DIRECT HUONG Rx#: [id number] PITOCin/NS 20 UNIT/1000ML 250 125 DRIP 20,000 milliunits In 1,000 ml @ 125 mls/hr IV DIRECT HUONG Rx#: [id number] Oral 360 Intake, Free Water 360 240 Output: Urine 850 400 Indwelling Catheter 400 Uretheral ([place]) 300 Other: Total, Intake Amount 360 Total, Output Amount 400 Estimated Blood Loss 700 - Exam Cardiovascular: Present: Regular rate Lungs: Present: Normal air movement Abdomen: Present: normal bowel sounds Uterus: Present: firm, fundal height below umbilicus Extremities: Present: normal Deep Tendon Reflex Grade: Normal +2 Incision: Present: dry, dressed - Labs Labs: Abnormal lab results 06/11/16 06/13/16 Range/Units 22:10 06:46 Hgb 9.6 L (10.1-14.3) gm/dl Hct 29.1 L D (30.3-42.9) % Crossmatch See Detail
[2016-06-13] MEDS: PRENATAL VITAMIN PO SCH (09:58)
[2016-06-13] MEDS: FEOSOL PO SCH (09:58)
--- NOTE | 2016-06-13 10:59 | Progress Note ---
Subjective Date of service: 06/13/16 Principal diagnosis: POD1 Interval history: 1st POD after Patient is comfortable, pain is well controlled with pain meds. Ambulates well. No residual neurological deficit. No anesthesia complications Objective - Constitutional Vitals: Vital Signs - 12hr 06/13/16 06/13/16 06/13/16 01:15 03:24 05:25 Temperature 99 F 98.6 F Pulse Rate [ 97 H 95 H From Monitor] Respiratory 20 20 18 Rate Blood Pressure 122/53 115/55 [Left Arm] 06/13/16 08:56 Temperature 98.9 F Pulse Rate [ 101 H From Monitor] Respiratory 20 Rate Blood Pressure 116/57 [Left Arm] - Labs CBC & Chem 7: 06/13/16 06:46 Labs: Abnormal lab results 06/11/16 06/13/16 Range/Units 22:10 06:46 Hgb 9.6 L (10.1-14.3) gm/dl Hct 29.1 L D (30.3-42.9) % Crossmatch See Detail
[2016-06-13] MEDS: MOTRIN PO PRN (16:20)
[2016-06-13] MEDS: PERCOCET 5/325 PO PRN (16:21)
[2016-06-14] MEDS: PERCOCET 5/325 PO PRN ×2 (04:12→16:05)
[2016-06-14] MEDS: MOTRIN PO PRN ×2 (04:12→16:05)
[2016-06-14] MEDS ORDERED: BOOSTRIX IM ONE (06:00)
--- NOTE | 2016-06-14 10:40 | Progress Note ---
Assessment and Plan A: POD #2 Asymptomatic Anemia P: Follow routine PostOp Orders D/C Home in the AM RTO in One Week Subjective - Subjective Date of service: 06/14/16 Principal diagnosis: POD1 Patient reports: appetite normal, voiding normally, pain well controlled, flatus , ambulating normally : doing well, bottle feeding Objective - Vital Signs Latest vital signs: Vital Signs Temp Pulse Resp BP 06/14/16 09:10 98.1 F 90 20 112/60 06/14/16 04:12 18 06/13/16 16:45 98.5 F 100 H 20 130/68 06/13/16 12:58 98.6 F 88 20 117/52 Intake and Output 06/13/16 06/14/16 06/14/16 22:59 06:59 14:59 Intake Total 380 360 240 Output Total 400 Balance -20 360 240 Intake: Oral 380 240 Intake, Free Water 360 Output: Urine 400 Void 400 Other: Total, Intake Amount 380 240 Total, Output Amount 200 # Voids Void 2 1 1 - Exam Breasts: Present: normal Cardiovascular: Present: Regular rate Lungs: Present: Clear to auscultation, Normal air movement Abdomen: Present: normal appearance, soft, normal bowel sounds Uterus: Present: normal, firm, fundal height below umbilicus Extremities: Present: normal Incision: Present: normal, dry, intact
--- NOTE | 2016-06-14 10:42 | Discharge Summary ---
Providers - Providers Date of Admission: 06/12/16 00:18 Date of discharge: 06/15/16 Attending physician: ROHAN PINEDA MD Primary care physician: ROHAN PINEDA MD Hospitalization Reason for admission: active labor Delivery: Procedure: primary low transverse Episiotomy: none Laceration: none Incision: normal, dry, intact Other procedures: none complications: none Discharge diagnosis: IUP at term delivered Bliss baby: male Condition at discharge: Good Disposition: DISCHARGED TO HOME OR SELFCARE Plan - Discharge Medications Prescriptions: Ibuprofen [Motrin 600 MG tab] 600 mg PO Q8H PRN #30 tablet PRN Reason: Pain Multivitamin with Iron [Multivitamins with Iron] 1 each PO DAILY #30 tablet oxyCODONE /ACETAMINOPHEN [Percocet 5/325] 1 tab PO Q6HR PRN #30 tablet PRN Reason: Pain - Provider Discharge Summary Activity: routine, no sex for 6 weeks, no heavy lifting 4 weeks, no strenuous exercise Diet: routine Instructions: routine Additional instructions: [] Smoking cessation referral if applicable(refer to patient education folder for contact #) [] Refer to [facility] Booklet Call your doctor immediately for: * Fever > 100.5 * Heavy vaginal bleeding ( >1 pad per hour) * Severe persistent headache * Shortness of breath * Reddened, hot, painful area to leg or breast * Drainage or odor from incision. * Keep incision clean and dry at all times and follow doctor's instructions regarding bathing/showering - Follow up plan Follow up: JN CRISTOBAL CNM [Advanced Practice Nurse] - 7 Days Forms: [facility] Discharge Summary, Discharge Signature Page
[2016-06-15] MEDS: MOTRIN PO PRN ×2 (05:51→12:30)
[2016-06-15 12:24] VITALS: BP 124/78
[2016-06-15] MEDS: PRENATAL VITAMIN PO SCH (12:30)
[2016-06-15] MEDS: FEOSOL PO SCH (12:30)
== END 2016-06-15 13:00 | disposition home or self-care (01) | DRG 765 ==
LOC: TRG 21:29 → LD 06-12 00:18 → APU 06-12 17:11 → OB 06-12 20:35
PROVIDERS: ADMIT Obstetrics & Gynecology; ATTEND Obstetrics & Gynecology
PROC: 10D00Z1 Extraction of Products of Conception, Low, Open Approach (ICD-10-PCS; principal; 2016-06-12)
PROC: 10907ZC Drainage of Amniotic Fluid, Therapeutic from Products of Conception, Via Natural or Artificial Opening (ICD-10-PCS; principal; 2016-06-12)
DX: O99.824 Streptococcus B carrier state complicating childbirth (principal); D62 Acute posthemorrhagic anemia; O76 Abnormality in fetal heart rate and rhythm complicating labor and delivery; Z3A.40 40 weeks gestation of pregnancy; Z37.0 Single live birth
CPT/HCPCS: 36415; 76815; 76819; 85014; 85018; 85027; 86850; 86900; 86901; 86920; 90471; 90686; 99211; C9250; G0463; J0290; J0595; J0690; J1170; J1885; J2250; J2270; J2405; J2590; J2765; J7120; J7121

== ENCOUNTER 2018-01-07 09:00 | Inpatient (IN) | payer BC, MEDICAID ==
[2018-01-07] MEDS ORDERED: PHENERGAN PR PRN (09:47)
[2018-01-07] MEDS ORDERED: BENADRYL IV PRN (09:47)
[2018-01-07] MEDS ORDERED: PHENERGAN PO PRN (09:47)
[2018-01-07] MEDS ORDERED: DILAUDID IV PRN (09:47)
[2018-01-07] MEDS ORDERED: NARCAN 0.4 MG/1 ML IV PRN (09:47)
[2018-01-07] MEDS ORDERED: ZOFRAN IV PRN (09:47)
--- NOTE | 2018-01-07 09:47 | Anesthesia Day of Surgery ---
Anesthesia Day of Surgery - Day of Surgery Patient Examined: Yes Patient H&P Reviewed: Yes Patient is NPO: Yes
--- NOTE | 2018-01-07 09:47 | Anesthesia Consultation ---
Anesthesia Consult and Med Hx Date of service: 01/07/18 - Airway Anesthetic Teeth Evaluation: Good ROM Head & Neck: Adequate Mental/Hyoid Distance: Adequate Mallampati Class: Class II Intubation Access Assessment: Probably Good - Pre-Operative Health Status ASA Pre-Surgery Classification: ASA2 Proposed Anesthetic Plan: Epidural, Spinal - Pulmonary Hx Asthma: No Hx Pneumonia: No - Cardiovascular System Hx Hypertension: No - Central Nervous System Hx Seizures: No Hx Psychiatric Problems: No - Endocrine Hx Renal Disease: No Hx End Stage Renal Disease: No Hx Hypothyroidism: No Hx Hyperthyroidism: No - Hematic Hx Anemia: No Hx Sickle Cell Disease: No - Other Systems Hx Alcohol Use: No - Additional Comments Anesthesia Medical History Comments: repeat
[2018-01-07] MEDS ORDERED: TORADOL IV PRN (09:48)
[2018-01-07] MEDS ORDERED: SODIUM CHLORIDE FLUSH SYRINGE 10 ML IV NR (10:00)
--- NOTE | 2018-01-07 10:20 | History and Physical Report ---
History of Present Illness Date of admission: 01/07/18 09:00 Chief complaint: scheduled section History of present illness: 22yo at 39 4/7 weeks presents for scheduled repeat section. She reports good movement, no loss of fluid and no vaginal bleeding. She was late to prental care at [facility] at 21 weeks and has been followed by [facility] due to a baby with visual impairment and developmental delays. 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 Past History Past Surgical History: section - Obstetrical History : 2 Para: 1 Medications and Allergies Allergies Allergy/AdvReac Type Severity Reaction Status Date / Time No Known Allergies Allergy Verified 06/11/16 21:58 Home Medications Medication Instructions Recorded Confirmed Last Taken Type Pnv,Calcium 72/Iron/Folic Acid 1 tab PO DAILY 06/11/16 06/13/16 1 Day Ago History [Pnv Plus Multivit Tab] ~06/10/16 Terconazole 20 cream VG DAILY 06/11/16 06/13/16 1 Day Ago History ~06/10/16 1 appl Ibuprofen [Motrin 600 MG tab] 600 mg PO Q8H PRN #30 tablet 06/12/16 Unknown Rx Multivitamin with Iron 1 each PO DAILY #30 tablet 06/12/16 Unknown Rx [Multivitamins with Iron] oxyCODONE /ACETAMINOPHEN [Percocet 1 tab PO Q6HR PRN #30 tablet 06/12/16 Unknown Rx 5/325] Active Meds: Active Medications Diphenhydramine HCl (Benadryl) 12.5 mg IV Q2H PRN PRN Reason: Itching Hydromorphone HCl (Dilaudid) 0.5 mg IV Q5M PRN PRN Reason: Breakthrough Pain Ketorolac Tromethamine (Toradol) 30 mg IV Q6H PRN PRN Reason: Pain, Moderate (4-6) Stop: 01/12/18 09:47 Naloxone HCl (Narcan 0.4 Mg/1 Ml) 0.2 mg IV Q2MIN PRN PRN Reason: Res Rate </= 8 or 02 SAT < 92% Ondansetron HCl (Zofran) 4 mg IV Q8H PRN PRN Reason: Nausea And Vomiting Promethazine HCl (Phenergan) 25 mg PO Q6H PRN PRN Reason: Nausea And Vomiting Promethazine HCl (Phenergan) 25 mg AK Q6H PRN PRN Reason: Nausea And Vomiting Sodium Chloride (Sodium Chloride Flush Syringe 10 Ml) 10 ml IV PRN NR Stop: 01/07/18 23:00 - Obstetrical FHR: category 1 Uterine Contraction Monitor Mode: External Results Result Diagrams: 01/07/18 Unknown All other labs normal. Assessment and Plan - Patient Problems (1) 39 weeks gestation of Current Visit: Yes Status: Acute Plan to address problem: 1. Routine labs, IVF 2. Ancef 2g IV 3. SCDs for DVT prophylaxis. 4. Risks including but not limited to bleeding, infection, need for blood transfusion, injury to mother and or have been discussed and informed consent signed. 5. Proceed to repeat section. (2) Previous section Current Visit: Yes Status: Acute
[2018-01-07] MEDS ORDERED: LACTATED RINGERS 1,000 ML ONE ×2 (10:42→13:57)
[2018-01-07] MEDS ORDERED: BICITRA PO ONE (10:46)
[2018-01-07] MEDS ORDERED: REGLAN IV ONE (10:46)
[2018-01-07] MEDS ORDERED: PEPCID IV ONE (10:46)
[2018-01-07] MEDS ORDERED: ANCEF/STERILE WATER 2 GM/20 ML 2 GM/20 ML SYRINGE IV NR (11:00)
[2018-01-07] MEDS ORDERED: PITOCin/NS 20 UNIT/1000ML DRIP 20 UNITS/1,000 ML BAG IV SCH ×2 (11:00→14:00)
[2018-01-07] MEDS: LACTATED RINGERS 1,000 ML IV SCH ×2 (11:08→11:31)
[2018-01-07 11:17] LABS: Basophils % (Auto) 0.1 % (0.0-1.8); Eosinophils % (Auto) 0.3 % (0.0-4.3); Hematocrit 34.3 % (30.3-42.9); Hemoglobin 11.4 gm/dl (10.1-14.3); Lymphocytes # (Auto) 1.4 K/mm3 (1.2-5.4); Mean Corpuscular HGB Conc 33 % (30-34); Mean Corpuscular Hemoglobin 31 pg (28-32); Mean Corpuscular Volume 93 fl (79-97); Monocytes # (Auto) 0.4 K/mm3 (0.0-0.8); Monocytes % (Auto) 8.2 % (0.0-7.3); Platelet Count 227 K/mm3 (140-440); Red Blood Count 3.68 M/mm3 (3.65-5.03); Red Cell Distribution Width 14.6 % (13.2-15.2)
[2018-01-07] MEDS ORDERED: WATER FOR IRRIG STERILE IR ONE (12:35)
[2018-01-07] MEDS ORDERED: NACL 0.9% IR ONE (12:35)
[2018-01-07] MEDS ORDERED: NEO SYNEPHRINE/NS Syringe(OR USE) IV ONE ×2 (12:47→13:26)
[2018-01-07] MEDS ORDERED: XYLOCAINE MPF 2% ONE (13:10)
[2018-01-07] MEDS ORDERED: ASTRAMORPH PF 10MG/10ML ONE (13:11)
[2018-01-07] MEDS ORDERED: LANSINOH TP PRN (13:59)
[2018-01-07] MEDS ORDERED: TUCKS PAD TP PRN (13:59)
[2018-01-07] MEDS ORDERED: MYLICON PO PRN (14:00)
[2018-01-07] MEDS ORDERED: MILK OF MAGNESIA PO PRN (14:00)
[2018-01-07] MEDS ORDERED: MOTRIN PO PRN (14:00)
--- NOTE | 2018-01-07 14:20 | Operative Report ---
Operative Report Operative Report: PREOP Diagnosis 1. 39 3/7 weeks gestation 2. Previous section 3. Keloid scar Postop Diagnosis 1. 39 3/7 weeks gestation 2. Previous section 3. Keloid scar Procedure: 1. Repeat low-transverse section 2. Keloid scar revision Findings 1. Viable male infant in the vertex position, weighing 6lb 12 oz, 3070g APGARS 8 at 1 min, 9 at 5 min 2. Normal uterus, bilateral ovaries and tubes 3. Nuchal cord x 2 3. Dense scarring of subcutaneous and fascial layers Surgeon 1. Tameka Solano MD Anesthesia: 1. Epidural I/O: EBL: 700ml IVF 1300ml LR Specimens removed: 1. Placenta - sent to pathology for previous history of child with visual, physical impairment, maternal history of CMV Complications: none Disposition: Patient taken to recovery room in stable condition INDICATIONS: The patient is a 22yo at 39 3/7weeks that presents for a scheduled repeat section. heart tones were confirmed in the OR to be in the 140s. The patient was consented and the risks including but not limited to bleeding, infections, injury to surrounding organs, potential injury to mother/ were discussed. All questions were answered and informed consent signed. PROCEDURE: The patient was taken to the OR in stable condition. Adequate anesthesia was achieved with epidural anesthesia. A bowers catheter was placed. She wore SCDs for DVT prophylaxis. And received Ancef for infection prophylaxis. The patient was prepped and draped in the usual fashion and an additional time out was done. A Pfannestiel incision was made above the previous uterine scar. This incision was noted to be keloid in nature. The fascia was incised and the incision extended laterally. The superior and inferior aspect of the rectus muscle was dissected off of the fascia. Entry into the peritoneum was achieved and the incision was extended cranially and caudally. The Enrique retractor was placed intrabdominally and a The vesicouterine fold was carefully dissected off the lower uterine segment. A low-transverse incision made made in the uterus and extended laterally with the bandage scissors. membranes were ruptured and noted to be clear. head was tennille to the hysterotomy. To accommodate delivery of the head the Enrique retractor was removed. The head was delivered and nuchal cord x 2 was reduced. The was bulb suctioned. The body was delivered. The cord was wrapped around lower extremities. The cord was clamped x 2, cut and handed off to awaiting wind field service manager staff. Cord blood was collected. The placenta was delivered intact. 20 units of IV Pitocin was added to LR fluids. The uterus was cleaned of all clots. The uterus was exteriorized and repaired with 0- Vicryl in a running, locked stitch and an imbricating layer of the same suture was used. Tissell, fibrin sealant, was applied to the hysterotomy. The rectus muscle was re-approximated with 2-0Vicryl. Fascia was closed with 0 Vicryl. The Subcutaneous layer reapproximated with 2-0 Vicryl. Attention was then turned to the lower aspect of the Pfannesteil incision which was keloid in nature. It was grasped with Allis clamps and removed with the scalpel and cautery. The skin was then closed with 4-0 Vicryl. The patient tolerated the procedure well. All counts were correct x 3. Urine was noted to be clear at close of case. I was present and scrubbed for the entire procedure. The patient was taken to the recovery room in stable condition.
[2018-01-07] MEDS ORDERED: D5LR 1,000 ML IV SCH (19:00)
[2018-01-08 01:43] LABS: Hematocrit 32.5 % (30.3-42.9); Hemoglobin 10.9 gm/dl (10.1-14.3)
--- NOTE | 2018-01-08 09:49 | Progress Note ---
Assessment and Plan A: POD#1 s/p Repeat section Bottlefeeding Stable Anticipate discharge home in 24-48hrs P: Continue routine PO/PP care Encouraged ambulation in room Abdominal binder Subjective - Subjective Date of service: 01/08/18 Principal diagnosis: POD#1 s/p Repeat c/s Patient reports: appetite normal, voiding normally, pain well controlled, ambulating normally, no flatus [place]: doing well, bottle feeding Objective - Vital Signs Latest vital signs: Vital Signs Temp Pulse Resp BP BP Pulse Ox 01/08/18 05:09 97.5 F L 71 18 108/41 96 01/08/18 01:44 97.7 F 80 18 111/39 92 01/07/18 20:16 98.2 F 83 18 112/51 93 01/07/18 15:45 97.6 F 77 18 125/55 100 01/07/18 15:21 97.7 F 01/07/18 15:15 68 15 112/40 98 01/07/18 15:10 68 14 115/41 98 01/07/18 15:05 69 14 111/43 98 01/07/18 15:00 67 14 104/40 98 01/07/18 14:55 65 14 106/38 98 01/07/18 14:50 64 14 98/37 98 01/07/18 14:45 64 20 108/37 98 01/07/18 14:40 64 14 107/40 98 01/07/18 14:35 63 14 102/36 98 01/07/18 14:30 64 14 102/34 98 01/07/18 14:25 70 14 99/27 98 01/07/18 14:20 69 16 103/37 98 01/07/18 14:15 69 16 103/32 98 01/07/18 14:12 97.6 F 69 16 103/31 98 01/07/18 11:53 80 97 01/07/18 11:48 82 97 01/07/18 11:43 80 97 01/07/18 11:38 78 97 01/07/18 11:25 97 F L 79 16 112/56 96 01/07/18 11:24 85 96 01/07/18 11:21 71 94 01/07/18 11:19 79 96 01/07/18 11:16 84 93 01/07/18 11:14 100 01/07/18 11:02 86 94 01/07/18 10:58 80 112/56 97 Intake and Output 01/07/18 01/08/18 01/08/18 23:59 07:59 15:59 Intake Total 240 120 Output Total 600 400 Balance -360 -280 Intake: Oral 240 Intake, Free Water 120 Output: Urine 600 400 Indwelling Catheter 100 Uretheral ([place]) 600 300 Void 0 Other: Total, Intake Amount 240 Total, Output Amount 100 - Exam Breasts: Present: normal Cardiovascular: Present: Regular rate, Normal S1, Normal S2, No murmurs Lungs: Present: Clear to auscultation, Normal air movement Abdomen: Present: normal appearance, soft, tenderness (as expected Post-op), normal bowel sounds. Absent: distention Vulva: both: normal Uterus: Present: firm, fundal height at umbilicus Extremities: Present: normal Deep Tendon Reflex Grade: Normal +2 Incision: Present: normal, dry, intact, dressed (Pressure dresssing, CDI, no drainage noted. ) - Labs Labs: Abnormal lab results 01/07/18 Range/Units Unknown [place] % (Auto) 8.2 H (0.0-7.3) %
[2018-01-08] MEDS: PERCOCET 5/325 PO PRN ×2 (15:20→21:01)
--- NOTE | 2018-01-09 10:41 | Progress Note ---
Assessment and Plan - Patient Problems (1) S/P repeat low transverse Current Visit: Yes Status: Acute Plan to address problem: POD 2 - stable Discharge to home later today Follow up at [facility] in 1 week for incision check Subjective - Subjective Date of service: 01/09/18 Principal diagnosis: POD #2; s/p Repeat LTCS Patient reports: appetite normal, voiding normally, pain well controlled, flatus , ambulating normally, no dizzy ambulation : doing well, bottle feeding Objective - Vital Signs Latest vital signs: Vital Signs Temp Pulse Resp BP BP Pulse Ox 01/09/18 08:50 98.3 F 89 20 118/57 01/09/18 01:22 98.9 F 78 16 115/46 95 01/08/18 16:09 98.4 F 78 18 109/88 Intake and Output 01/08/18 01/09/18 01/09/18 23:59 07:59 15:59 Intake Total 120 240 120 Balance 120 240 120 Intake: Oral 120 120 Intake, Free Water 240 Other: Total, Intake Amount 120 120 # Voids Void 1 1 1 - Exam Abdomen: Present: normal appearance, soft Vulva: both: normal Uterus: Present: normal, firm, fundal height below umbilicus Extremities: Present: normal Incision: Present: normal, dry, intact
--- NOTE | 2018-01-09 10:43 | Discharge Summary ---
Providers - Providers Date of Admission: 01/07/18 09:00 Date of discharge: 01/09/18 Attending physician: DEEP BOGGS Primary care physician: DEEP BOGGS Hospitalization Reason for admission: section, IUP at term Delivery: Procedure: repeat low transverse Incision: normal, dry, intact Other procedures: none complications: none Discharge diagnosis: IUP at term delivered baby: male Hospital course: Uncomplicated Condition at discharge: Stable Disposition: DC-01 TO HOME OR SELFCARE - Discharge Diagnoses (1) S/P repeat low transverse Status: Acute Plan - Discharge Medications Prescriptions: Ibuprofen 800 mg PO Q6H PRN 10 Days #30 tablet MDD 3200mg PRN Reason: Pain, Moderate (4-6) oxyCODONE /ACETAMINOPHEN [Percocet 5/325] 1 tab PO Q4HR PRN 14 Days #30 tab MDD 4000gram PRN Reason: Pain , Severe (7-10) - Provider Discharge Summary Activity: routine, no sex for 6 weeks, no heavy lifting 4 weeks, no strenuous exercise Diet: routine Instructions: routine Additional instructions: [] Smoking cessation referral if applicable(refer to patient education folder for contact #) [] Refer to [facility] Booklet Call your doctor immediately for: * Fever > 100.5 * Heavy vaginal bleeding ( >1 pad per hour) * Severe persistent headache * Shortness of breath * Reddened, hot, painful area to leg or breast * Drainage or odor from incision. * Keep incision clean and dry at all times and follow doctor's instructions regarding bathing/showering - Follow up plan Follow up: DEEP BOGGS [Primary Care Provider] - 7 Days (Follow up at [facility] in 1 week for incision check)
[2018-01-09] MEDS: PERCOCET 5/325 PO PRN (13:46)
[2018-01-09 18:13] VITALS: BP 128/77
== END 2018-01-09 16:45 | disposition home or self-care (01) | DRG 766 ==
LOC: APU 09:00 → LD 09:30 → OB 15:47
PROVIDERS: ADMIT Obstetrics & Gynecology; ATTEND Obstetrics & Gynecology
PROC: 10D00Z1 Extraction of Products of Conception, Low, Open Approach (ICD-10-PCS; principal; 2018-01-07)
PROC: 0HB7XZZ Excision of Abdomen Skin, External Approach (ICD-10-PCS; principal; 2018-01-07)
DX: O34.211 Maternal care for low transverse scar from previous cesarean delivery (principal); Z3A.39 39 weeks gestation of pregnancy; Z37.0 Single live birth; L91.0 Hypertrophic scar; O69.81X0 Labor and delivery complicated by cord around neck, without compression, not applicable or unspecified; O75.89 Other specified complications of labor and delivery
CPT/HCPCS: 36415; 85014; 85018; 85025; 86850; 86900; 86901; 88305; 88307; C9250; J0690; J1885; J2274; J2370; J2405; J2590; J2765; J7120; J7121; Q0169